=== PATIENT | male | born 1980 | race Caucasian/White ===

== ENCOUNTER 2017-05-27 01:36 | Emergency (ER) | payer OTHER ==
[2017-05-27 01:50] VITALS: RESP 18
[2017-05-27] MEDS ORDERED: PROMETHAZINE 25 MG TAB PO STA (02:11)
[2017-05-27] MEDS ORDERED: SODIUM CHLORIDE 0.9% 1,000 ML IV STA ×2 (02:11)
[2017-05-27] MEDS ORDERED: ONDANSETRON 4 MG/2 ML VIAL IVP STA (02:11)
[2017-05-27] MEDS ORDERED: HYDROmorphone 1 MG/ML 1 ML SYRINGE IVP STA (02:11)
--- NOTE | 2017-05-27 02:33 | ED ---
Abdominal Pain HPI - General Chief Complaint: Abdominal Pain Stated Complaint: Abdominal Pain Time Seen by Provider: 05/27/17 01:53 Source: patient Mode of arrival: ambulatory Limitations: no limitations - History of Present Illness Initial Comments: This 37-year-old white male presents with a complaint of some flank pain which is been intermittent over the past week but much more severe over the past 6 hours tonight. It apparently is on the left side and radiates into the left lower quadrant. He had some nausea tonight but no vomiting, diarrhea, or constipation. There's been no fevers or chills. He apparently does have a history of kidney stones 4 times in the past and this is somewhat similar. He denies any urinary symptoms. No other complaints or modifying factors. - Related Data Previous Rx's Medication Instructions Recorded Ciprofloxacin HCl [Cipro] 500 mg PO Q12HR #14 tablet 05/27/17 Hydrocodone/Acetaminophen [[place] 1 - 2 each PO Q4HR PRN #20 tab 05/27/17 5-325] Ibuprofen [Motrin] 800 mg PO Q8H PRN #20 tab 05/27/17 Ondansetron [Zofran ODT] 8 mg PO Q8HR PRN #12 tab 05/27/17 Tamsulosin [Flomax] 0.4 mg PO DAILY #14 cap 05/27/17 Allergies Allergy/AdvReac Type Severity Reaction Status Date / Time shellfish derived [Shrimp] Allergy Itching Verified 05/27/17 01:49 Review of Systems ROS Statement: Those systems with pertinent positive or pertinent negative responses have been documented in the HPI. ROS Other: All systems not noted in ROS Statement are negative. Past Medical History Additional Past Medical History / Comment(s): kidney stones History of Any Multi-Drug Resistant Organisms: None Reported Past Surgical History: No Surgical Hx Reported Past Psychological History: No Psychological Hx Reported Smoking Status: Current every day smoker Past Alcohol Use History: Occasional Past Drug Use History: None Reported General Exam - General Exam Comments Initial Comments: GENERAL: The patient is well nourished and well hydrated. VITAL SIGNS: Heart rate, blood pressure, respiratory rate reviewed as recorded in nurse's notes. EYES: Pupils are round and reactive. Extraocular movements are intact. No conjunctival / lid redness or swelling. ENT: No external evidence of injury, swelling, or ecchymosis. Airway is patent. Throat is clear. NECK: Nontender. No swelling or evidence of injury. No subcutaneous emphysema. Trachea is midline. No thyroid mass. HEART: Regular rate and rhythm. Good peripheral pulses. LUNGS/CHEST: Breath sounds clear and equal bilaterally. No rales, rhonchi, or wheezes. No ecchymosis, subcutaneous emphysema, or tenderness. ABDOMEN: There is some tenderness present into the left flank region. No anterior abdominal tenderness noted. No palpable masses or organomegaly. No peritoneal signs. No abdominal wall swelling or ecchymosis. EXTREMITIES: No extremity tenderness. Normal muscle tone and function. No thoracolumbar tenderness. NEUROLOGIC: Sensation is grossly intact. Cranial nerve exam reveals face is symmetrical, tongue is midline, speech is clear. SKIN: No abrasions or ecchymosis is noted. No induration or masses noted. PSYCHIATRIC: Alert and oriented. Appropriate behavior and judgment. Limitations: no limitations Course Vital Signs 05/27/17 05/27/17 01:47 04:03 Temperature 97.1 F L 97.6 F Pulse Rate 94 72 Respiratory 18 18 Rate Blood Pressure 141/86 119/72 O2 Sat by Pulse 98 97 Oximetry Medical Decision Making - Medical Decision Making The patient was seen and examined. All diagnostics were reviewed. An IV was established and he received some Dilaudid, Zofran, and Toradol. He is feeling improved on recheck. The laboratory is reviewed and is essentially within normal limits. The urinalysis does show some hematuria but also some elevation of the white blood cells. The computed tomography scan shows a 5 mm proximal left ureteral stone with hydronephrosis. He is had kidney stones multiple times previously and states that he has passed them all on his own. It is felt as though he is stable for discharge. Return parameters are discussed and urology follow-up will be given. - Lab Data Result diagrams: 05/27/17 02:30 05/27/17 02:30 Lab Results 05/27/17 05/27/17 05/27/17 Range/Units 02:02 02:30 02:30 WBC 9.2 (3.8-10.6) k/uL RBC 5.01 (4.30-5.90) m/uL Hgb 15.5 (13.0-17.5) gm/dL Hct 44.6 (39.0-53.0) % MCV 88.9 (80.0-100.0) fL MCH 31.0 (25.0-35.0) pg MCHC 34.8 (31.0-37.0) g/dL RDW 13.1 (11.5-15.5) % Plt Count 209 (150-450) k/uL Neutrophils % 66 % Lymphocytes % 24 % Monocytes % 5 % Eosinophils % 4 % Basophils % 1 % Neutrophils # 6.1 (1.3-7.7) k/uL Lymphocytes # 2.2 (1.0-4.8) k/uL Monocytes # 0.4 (0-1.0) k/uL Eosinophils # 0.3 (0-0.7) k/uL Basophils # 0.0 (0-0.2) k/uL Sodium 142 (137-145) mmol/L Potassium 4.1 (3.5-5.1) mmol/L Chloride 105 (98-107) mmol/L Carbon Dioxide 24 (22-30) mmol/L Anion Gap 13 mmol/L BUN 16 (9-20) mg/dL Creatinine 0.80 (0.66-1.25) mg/dL Est GFR (MDRD) Af Amer >60 (>60 ml/min/1.73 sqM) Est GFR (MDRD) Non-Af >60 (>60 ml/min/1.73 sqM) Glucose 92 (74-99) mg/dL Calcium 9.6 (8.4-10.2) mg/dL Total Bilirubin 0.8 (0.2-1.3) mg/dL AST 21 (17-59) U/L ALT 32 (21-72) U/L Alkaline Phosphatase 59 (38-126) U/L Total Protein 7.2 (6.3-8.2) g/dL Albumin 4.7 (3.5-5.0) g/dL Amylase <30 L (30-110) U/L Lipase 41 (23-300) U/L Urine Color Light Red Urine Appearance Clear (Clear) Urine pH 6.0 (5.0-8.0) Ur Specific [place] 1.015 (1.001-1.035) Urine Protein 1+ H (Negative) Urine Glucose (UA) Negative (Negative) Urine Ketones Negative (Negative) Urine Blood Large H (Negative) Urine Nitrite Negative (Negative) Urine Bilirubin Negative (Negative) Urine Urobilinogen <2.0 (<2.0) mg/dL Ur Leukocyte Esterase Negative (Negative) Urine RBC >182 H (0-5) /hpf Urine WBC 50 H (0-5) /hpf Urine Mucus Rare H (None) /hpf Disposition Clinical Impression: Left flank pain, Abdominal pain, Ureterolithiasis, Hydronephrosis, Nausea Disposition: HOME SELF-CARE Condition: Good Instructions: Kidney Stones (ED) Prescriptions: Ciprofloxacin HCl [Cipro] 500 mg PO Q12HR #14 tablet Hydrocodone/Acetaminophen [[place] 5-325] 1 - 2 each PO Q4HR PRN #20 tab PRN Reason: Pain Ibuprofen [Motrin] 800 mg PO Q8H PRN #20 tab PRN Reason: Pain Ondansetron [Zofran ODT] 8 mg PO Q8HR PRN #12 tab PRN Reason: Nausea Tamsulosin [Flomax] 0.4 mg PO DAILY #14 cap Referrals: Dank Jordan MD [STAFF PHYSICIAN] - 05/29/17 NellPhysician [Primary Care Provider] - 05/29/17 Time of Disposition: 04:12
[2017-05-27 02:37] LABS: Appearance,Urine Clear (Clear); Bilirubin,Urine Negative (Negative); Glucose,Urine (UA) Negative (Negative); Ketones,Urine Negative (Negative); Leukocyte Esterase,Urine Negative (Negative); Mucus,Urine Rare /hpf; Nitrite,Urine Negative (Negative); Particle Count 3026; Protein,Urine 1+ (Negative); RBC,Urine >182 /hpf (0-5); Specific Gravity,Urine 1.015 (1.001-1.035); UA Billing (MACRO vs. MICRO) MICRO; Urobilinogen,Urine <2.0 mg/dL (<2.0); WBC,Urine 50 /hpf (0-5)
[2017-05-27 02:48] LABS: Basophils % (A) 1 %; CH 31.2; CHCM 35.2; Eosinophils # (A) 0.3 k/uL (0-0.7); Eosinophils % (A) 4 %; HCT 44.6 % (39.0-53.0); HDW 2.42; HGB 15.5 gm/dL (13.0-17.5); Luc # (Auto) 0.13; Luc % (Auto) 2; Lymphocytes # (A) 2.2 k/uL (1.0-4.8); Lymphocytes % (A) 24 %; MCHC 34.8 g/dL (31.0-37.0); MCV 88.9 fL (80.0-100.0); Mean Platelet Volume 7.8; Monocytes # (A) 0.4 k/uL (0-1.0); Monocytes % (A) 5 %; Neutrophils # (A) 6.1 k/uL (1.3-7.7); Neutrophils % (A) 66 %; RBC 5.01 m/uL (4.30-5.90); RDW 13.1 % (11.5-15.5); WBC 9.2 k/uL (3.8-10.6); WBC (Perox) 9.18
[2017-05-27 03:05] LABS: ALT 32 U/L (21-72); AST 21 U/L (17-59); Alkaline Phosphatase 59 U/L (38-126); Amylase <30 U/L (30-110); Anion Gap 13 mmol/L; Blood Urea Nitrogen 16 mg/dL (9-20); Calcium 9.6 mg/dL (8.4-10.2); Carbon Dioxide 24 mmol/L (22-30); Chloride 105 mmol/L (98-107); Glucose 92 mg/dL (74-99); Non-African American GFR(MDRD) >60 (>60 ml/min/1.73 sqM); Potassium 4.1 mmol/L (3.5-5.1); Sodium 142 mmol/L (137-145); Total Bilirubin 0.8 mg/dL (0.2-1.3); Total Protein 7.2 g/dL (6.3-8.2)
--- NOTE | 2017-05-27 03:25 | CT ---
EXAM: CT Abdomen and Pelvis Without Intravenous Contrast CLINICAL HISTORY: Right flank pain TECHNIQUE: Axial computed tomography images of the abdomen and pelvis without intravenous contrast. CTDI is 5.4 mGy and DLP is 257 mGy-cm. This CT exam was performed using one or more of the following dose reduction techniques: automated exposure control, adjustment of the mA and/or kV according to patient size, and/or use of iterative reconstruction technique. COMPARISON: No relevant prior studies available. FINDINGS: Lower thorax: Dependent atelectasis. ABDOMEN: Liver: Unremarkable. Gallbladder and bile ducts: Unremarkable. Pancreas: Unremarkable. Spleen: Unremarkable. Adrenals: Unremarkable. Kidneys and ureters: 5 mm calculus in the proximal left ureter (3-60), which causes mild hydronephrosis and periureteral stranding. Presumed cysts are seen within both kidneys some of which demonstrate calcification. These are incompletely characterized without IV contrast. Stomach and bowel: Unremarkable. Appendix: The appendix is unremarkable. PELVIS: Bladder: Unremarkable. Reproductive: Unremarkable as visualized. ABDOMEN and PELVIS: Intraperitoneal space: Unremarkable. Bones/joints: No acute fracture. No dislocation. Soft tissues: Unremarkable. Vasculature: Unremarkable. Lymph nodes: Unremarkable. IMPRESSION: 5 mm calculus in the proximal left ureter (3-60), which causes mild hydronephrosis and periureteral stranding.
[2017-05-27 04:04] VITALS: BP 119/72; PULSE 72; TEMP 97.6
[2017-05-27] MEDS ORDERED: CIPROFLOXACIN HCL 500 MG TAB PO STA (04:06)
== END 2017-05-27 04:30 | disposition home or self-care (01) ==
LOC: EC 01:36
DX: N13.2 Hydronephrosis with renal and ureteral calculous obstruction (principal); R11.0 Nausea; F17.200 Nicotine dependence, unspecified, uncomplicated; Z91.013 Allergy to seafood
CPT/HCPCS: 96374; 96375; 96361 ×2; 99284; 36415; 80053; 82150; 83690; 85025; 81001; 74176; J2405; J1170

== ENCOUNTER → 2023-02-21 | Outpatient (CLI) | payer OTHER ==
[2023-02-21 16:57] LABS: Partial Thromboplastin Time 26.5 sec (22.0-30.0); Prothrombin Time 10.4 sec (9.0-12.0)
[2023-02-22 02:06] LABS: African American GFR (CKD) 102.2 (60.0-200.0); Albumin 4.7 g/dL (3.8-4.9); Albumin/Globulin Ratio 2.1 (1.60-3.17); Anion Gap 9.2 mmol/L (10.00-18.00); BUN/Creat Ratio 18.75 Ratio (12.00-20.00); Blood Urea Nitrogen 19.5 mg/dL (9.0-27.0); Carbon Dioxide 28.3 mmol/L (20.0-27.5); Globulin 2.2 g/dL (1.6-3.3); Non-African American GFR(CKD) 88.1 (60.0-200.0); Potassium 4.8 mmol/L (3.5-5.5); Total Bilirubin 0.2 mg/dL (0.30-1.20); Total Protein 6.9 g/dL (6.2-8.2)
[2023-02-22 02:14] LABS: HCT 45.1 % (39.6-50.0); MCH 29.8 pg (27.0-32.0); MCHC 33.3 g/dL (32.0-37.0); MCV 89.7 fL (80.0-97.0); Mean Platelet Volume 10.5 fL (9.5-12.2); NRBC Per 100 WBC 0 /100 WBCS (0.0-0.0); Platelet Count 254 X 10*3/uL (140-440); RBC 5.03 X 10*6/uL (4.40-5.60); RDW 12.4 % (11.5-14.5); WBC 5.02 X 10*3/uL (4.50-10.00)
[2023-02-22 04:00] LABS: Appearance,Urine Clear (Clear); Bilirubin,Urine Negative (Negative); Blood,Urine Moderate (Negative); Color,Urine Yellow (Yellow); Ketones,Urine Negative (Negative); Nitrite,Urine Negative (Negative); PH, Urine 6.5 (5.0-8.0); Specific Gravity,Urine 1.017 (1.001-1.030); Urobilinogen,Urine 0.2 (0.2,1.0)
[2023-02-22 04:40] LABS: Bacteria,Urine None Seen /HPF (None Seen); Calcium Oxalate Crystals,Urine Present /LPF (None Seen)
== END | disposition home or self-care (01) ==
LOC: LABPAT 15:22
PROVIDERS: ATTEND Orthopaedic Surgery
DX: Z01.812 Encounter for preprocedural laboratory examination (principal); M16.12 Unilateral primary osteoarthritis, left hip
CPT/HCPCS: 80053; 81001; 85027; 85610; 85730; 87070

== ENCOUNTER 2023-03-01 13:51 | Inpatient (IN) | payer OTHER ==
[2023-02-23 10:52] VITALS: BMI 25.8
[~2023-03-01 13:51] MED LIST: ACETAMINOPHEN TAB 500 MG TAB PO PRN; DEXAMETHASONE SOD PHOSPHATE 10 MG/ML 1 ML VIAL IV PRN; DEXAMETHASONE SOD PHOSPHATE 4 MG/ML 1 ML VIAL IV ONE; DOCUSATE 100 MG CAP PO PRN; FAMOTIDINE 20 MG/2 ML VIAL IVP PRN; HYDROmorphone 0.5 MG/0.5 ML SYRINGE IVP PRN; KETOROLAC 15 MG/ML 1 ML VIAL IVP PRN; LIDOCAINE 1% (10MG/ML) FOR IV START INTRADERMA PRN; ONDANSETRON 4 MG/2 ML VIAL IVP PRN; ROPIVACAINE/EPI/CLONIDINE/KET 50 ML SYRINGE MISCELLANE PRN; TRANEXAMIC ACID IN NACL,ISO-OS 1,000 MG in SALINE 1 100ML.BAG IV PRN; TRANEXAMIC ACID IN NACL,ISO-OS 1,000 MG in SALINE 1 100ML.BAG IVPB PRN; oxyCODONE ER 10 MG TAB.ER.12H PO PRN
[2023-03-01] MEDS: LACTATED RINGERS 1,000 ML IV SCH ×3 (14:21→22:10)
[2023-03-01] MEDS ORDERED: MIDAZOLAM 2 MG/2 ML VIAL IVP ONE (14:36)
[2023-03-01] MEDS ORDERED: fentaNYL (PF) 50 MCG/ML 2 ML AMP IVP ONE (14:38)
[2023-03-01] MEDS ORDERED: HYDROmorphone (PF) 1 MG/ML ONE (15:19)
[2023-03-01] MEDS ORDERED: fentaNYL (PF) 50 MCG/ML 2 ML AMP ONE (15:19)
[2023-03-01] MEDS ORDERED: MIDAZOLAM 2 MG/2 ML VIAL ONE (15:19)
[2023-03-01] MEDS ORDERED: LIDOCAINE 2% INJ 20 MG/ML (2 ML VIAL) ONE (15:19)
[2023-03-01] MEDS ORDERED: ROCURONIUM 10 MG/ML (5 ML VIAL) IV ONE (15:19)
[2023-03-01] MEDS ORDERED: SUCCINYLCHOLINE CHLORIDE 200 MG/10 ML VIAL IV ONE (15:19)
[2023-03-01] MEDS ORDERED: PROPOFOL 10 MG/ML 20 ML VIAL IV ONE (15:19)
[2023-03-01] MEDS ORDERED: PHENYLEPHRINE-0.9% NACL SYG 1,000 MCG/10 ML SYRINGE ONE (15:19)
[2023-03-01] MEDS ORDERED: TRANEXAMIC ACID IN NACL,ISO-OS 1,000 MG/100 ML BAG ONE (15:19)
[2023-03-01] MEDS ORDERED: GLYCOPYRROLATE 0.2 MG/ML 2 ML VIAL ONE (15:19)
[2023-03-01] MEDS ORDERED: NEOSTIGMINE 1 MG/ML 10 ML VIAL ONE (15:19)
[2023-03-01] MEDS ORDERED: LACTATED RINGERS 1,000 ML IV ONE (16:27)
[2023-03-01] MEDS ORDERED: HYDROmorphone 0.5 MG/0.5 ML SYRINGE IVP PRN (17:46)
[2023-03-01] MEDS ORDERED: NALOXONE 0.4 MG/ML 1 ML VIAL IV PRN (17:46)
[2023-03-01] MEDS ORDERED: HYDROcodone/APAP 5-325MG 1 EACH TAB PO PRN (17:46)
--- NOTE | 2023-03-01 17:46 | FL ---
Intraoperative/procedural fluoroscopic services were provided. Total fluoroscopy time is 46 seconds w ith a total of 6 submitted images to PACS. Please see the operative/procedural note for further jamaal ls. DAP: 0.3052
--- NOTE | 2023-03-01 17:56 | P.OP ---
Date of Procedure: 03/01/23 Preoperative Diagnosis: 1. Left hip avascular necrosis with collapse Postoperative Diagnosis: Same Procedure(s) Performed: Left direct anterior total hip arthroplasty Implants: 1. Lamar Trident II Acetabular Cup, Size #54 2. [place] Insignia Size #4 Femoral Stem, High Offset 3. Biolox delta femoral head, 36 mm, - -2.5 neck Anesthesia: BETTY, regional Surgeon: Curry Xiao [employer] #1: Tee Saucedo Estimated Blood Loss (ml): 200 IV fluids (ml): 1,300 Pathology: none sent Condition: stable Disposition: PACU Indications for Procedure: I had a long discussion with the patient in the office on the potential risks and complications of an elective total hip replacement through a direct anterior approach. Risks discussed include, but are certainly not limited to, risks from anesthesia, superficial infection requiring local wound care or antibiotics, deep kit-prosthetic joint infection and the treatment required to eradicate infection, intraoperative fracture, postoperative periprosthetic fracture, damage to local blood vessels or nerves particularly the lateral femoral cutaneous nerve, delayed wound healing requiring local wound care or possibly surgical debridement, hip dislocation, leg length discrepancy, soft tissue irritation around the total hip implant such as iliopsoas tendinitis or trochanteric bursitis, wear and osteolysis from the implants, squeaking or audible noises, groin pain, thigh pain, heterotopic ossification, stiffness, aseptic loosening of the implants, dissatisfaction with surgical outcome, need for revision surgery, DVT, PE, swelling of the operative extremity, acute coronary event, stroke, failure to thrive, and possibly loss of life or limb. The patient understands that while these are the most common complications after an elective hip replacement there are certainly other less common complications possible. They were given ample time to ask questions regarding the potential complications of a hip replacement. Following our discussion the patient provided their verbal and written consent to go forward with an elective total hip replacement. Operative Findings: Avascular necrosis with collapse of the femoral head. There were multiple loose cartilaginous bodies within the joint. Description of Procedure: The patient was identified in the preoperative holding area and the correct hip was marked with my initials. I reviewed the procedure and consent with the patient. All of their questions were answered. The patient was then brought back into the operating room by anesthesia. While on the gurney anesthesia was administered by the anesthesia team. Preoperative antibiotics and tranexamic acid were also given. After the patient was under anesthesia I examined their a nkles to determine their preoperative leg length discrepancy. The skin over the anterior aspect of the hip was shaved to remove hair over the site of planned incision. Both feet and ankles were padded with webril and boots for the [place] were applied. The patient was then carefully transferred onto the [place] table. A perineal post was immediately placed. The arms were placed on arm holders and were well-padded. Both boots were secured to the spars on the [place] table. The patient was positioned so that the pelvis was centered over the post. Nonsterile drapes were applied. A timeout was performed identifying the correct patient, operative extremity, and procedure. At this point fluoroscopy was brought in to take preoperative images of the pelvis and operative hip. Using the standing AP pelvis from the office as a template, a comparable image was obtained with fluoroscopy. A metallic bar was used to create a bi-ischial line for use as a reference to leg length adjustments during the procedure. Global offset was also measured on both the operative and nonoperative leg. Fluoroscopy was then brought out and a pre-scrub using a chlorhexidine scrub brush was performed. The operative limb was then prepped and draped in the standard sterile fashion. An anterior longitudinal incision was made lateral and distal to the ASIS. The skin and subcutaneous tissues were incised sharply. The underlying tensor fascia was identified and incised in its midportion. The fascia was dissected free from the underlying muscle and the muscle belly was retracted. A blunt tipped cobra retractor was placed over the superior neck under the muscle fibers of the gluteus minimus. The deep enveloping fascia of the tensor was incised. The anterior leash of vessels were then identified and cauterized. The fascia between the rectus and the capsule was then incised and the pre-capsular fat was excised. A second Cobra was placed inferior to the neck. The interval between the rectus and iliocapsularis and the hip capsule was developed and a retractor was placed carefully over the anterior rim of the acetabulum. A T-shaped anterior capsulotomy was performed. The superior capsular leaflet was left in place in the inferior capsular flap was excised. The Cobra retractors were placed intracapsularly. We then made a femoral neck osteotomy according to preoperative and intraoperative templating and confirmed the level of the osteotomy using fluoroscopic imaging. The femoral head was removed, passed off to the back table, and sized. On inspection there were findings consistent with avascular necrosis and collapse of the femoral head. There were multiple loose cartilaginous bodies within the joint. The superior capsular flap was excised. Retractors were placed circumferentially exposing the acetabulum. We then circumferentially debrided the acetabulum free of labrum and osteophytes. The pulvinar was removed to fully visualize the cotyloid fossa. We then sequentially reamed to achieve peripheral fit and excellent bleeding subchondral bone. The socket was thoroughly irrigated. The acetabular component was impacted into the appropriate position using fluoroscopy to guide version, inclination, and depth of insertion taking care to have a comparable image of the AP pelvis to the standing image taken in the office. An excellent press-fit was achieved and final position was confirmed using fluoroscopy. The press fit was augmented with bony cancellus dome screws. The liner was then impacted into the socket. Attention was then turned to the femur. The remnant dorsal lateral capsule was excised. The short external rotators were visible and protected. A bone hook was used to confirm appropriate translation of the trochanter away from the acetabulum. The leg was then extended and adducted and the bone hook was used to elevate the femur for broaching. A box osteotome and blunt tipped canal sound was then utilized to gain access to the femoral canal. We then sequentially broached the femur in appropriate anteversion until excellent torsional stability was achieved. The neck cut was brought flush to the trial broach with a calcar planar. A trial neck and head were then placed onto the broach and the hip was atraumatically reduced under direct visualization. External rotation to 90 was performed to assess stability. Fluoroscopy was brought in. An AP and lateral fluoroscopic image of the proximal femur was obtained to assess position and fill of the trial broach. An AP of the pelvis was then obtained and matched to the preoperative image taken. A bi-ischial bar was then placed and measurements were taken to assess changes in length and offset. The hip was then carefully dislocated, the proximal femur was exposed, and the trial implants were removed. The wound and proximal femur was thoroughly irrigated using sterile saline and pulsatile lavage. The final femoral implant was dispensed and gently tapped into place generating an excellent press-fit. The trunnion was cleansed and the final head was tapped into place to engage the [place] taper. The acetabulum was irrigated and visualized to be free of debris. The hip was carefully reduced. Stability was checked clinically with external rotation to 90 and there was no evidence of instability. Final fluoroscopic images were taken. The wound was then thoroughly irrigated and soaked with a dilute Betadine rinse for 3 minutes. 3 L of sterile saline was irrigated through the wound using pulsatile lavage. Local anesthetic cocktail was injected into the soft tissues around the surgical field. The wound was then closed in layers. A sterile dressing was placed over the surgical incision. The drapes were taken down and the patient was carefully transferred off of the [place] table. Following removal of the boots the leg lengths felt acceptable. The patient was then taken to recovery room having tolerated the procedure well. Tee Saucedo PA-C was required as a skilled business services assistant for patient positioning, surgical exposure, retraction, placement of implants, and closure of the surgical wound. PLAN: The patient can weight-bear as tolerated on the operative extremity. DVT prophylaxis with aspirin 81 mg twice a day based on preoperative risk stratification. Physical therapy for gait training.
--- NOTE | 2023-03-01 20:51 | P.ANPRN ---
Procedure Note - Anesthesia - Nerve Block Performed Left Nicola Time Out Performed: Yes (14:38) Date of Procedure: 03/01/23 Procedure Start Time: :38 Procedure Stop Time: :44 Location of Patient: PreOp Indication: Acute Post-Operative Pain, Requested by Surgeon (Dr Xiao) Sedation Type: Sedate with meaningful contact maintained Preparation: Sterile Prep Position: Supine Catheter: None Needle Types: Pajunk Needle Gauge: 21 Ultrasound used to visualize needle placement: Yes Ultrasound used to observe medication spread: Yes Injectate: 0.5% Ropivacaine (see comment for volume) (20cc + 5cc PF Normal saline) Blood Aspirated: No Pain Paresthesia on Injection Noted: No Resistance on Injection: Normal Image Stored and Saved: Yes Events: Uneventful and Well Tolerated
[2023-03-01] MEDS: ASPIRIN 81 MG PO SCH (22:11)
[2023-03-01] MEDS: SENNOSIDES-DOCUSATE SODIUM 1 EACH TAB PO SCH (22:11)
[2023-03-01] MEDS: HYDROcodone/APAP 5-325MG 1 EACH TAB PO PRN (22:13)
[2023-03-02] MEDS: HYDROmorphone 0.5 MG/0.5 ML SYRINGE IVP PRN ×3 (02:53→10:25)
[2023-03-02] MEDS: LACTATED RINGERS 1,000 ML IV SCH ×3 (05:25→20:03)
[2023-03-02] MEDS: ASPIRIN 81 MG PO SCH ×2 (08:12→21:52)
[2023-03-02] MEDS: HYDROcodone/APAP 5-325MG 1 EACH TAB PO PRN (09:48)
[2023-03-02] MEDS: hydrOXYzine pamoate 25 MG CAP PO PRN (09:48)
[2023-03-02 10:59] LABS: Basophils # (A) 0.01 X 10*3/uL (0.00-0.10); Basophils % (A) 0.1 %; Eosinophils # (A) 0 X 10*3/uL (0.04-0.35); Eosinophils % (A) 0 %; HCT 35.8 % (39.6-50.0); HGB 12.1 g/dL (13.0-17.0); Immature Grans, Automated 0.4 %; Lymphocytes # (A) 0.99 X 10*3/uL (0.90-5.00); Lymphocytes % (A) 6.6 %; MCH 29.8 pg (27.0-32.0); MCHC 33.8 g/dL (32.0-37.0); MCV 88.2 fL (80.0-97.0); Mean Platelet Volume 10.2 fL (9.5-12.2); Monocytes # (A) 0.76 X 10*3/uL (0.20-1.00); Monocytes % (A) 5.1 %; NRBC Per 100 WBC 0 /100 WBCS (0.0-0.0); Neutrophils # (A) 13.15 X 10*3/uL (1.80-7.70); Neutrophils % (A) 87.8 %; Platelet Count 239 X 10*3/uL (140-440); RBC 4.06 X 10*6/uL (4.40-5.60); RDW 12.2 % (11.5-14.5); WBC 14.97 X 10*3/uL (4.50-10.00)
[2023-03-02] MEDS ORDERED: HYDROcodone/APAP 5-325MG 1 EACH TAB PO PRN (12:31)
[2023-03-02] MEDS ORDERED: HYDROcodone/APAP 10-325MG 1 EACH TAB PO PRN (12:33)
--- NOTE | 2023-03-02 12:44 | P.DS ---
Providers Expected date of discharge: 03/02/23 Attending physician: Curry Xiao Consults: 03/01/23 17:46 Consult Physician Routine Consulting Provider: Benson Westfall Consult Reason/Comments: medical management Do you want consulting provider notified?: Yes Primary care physician: Stated None Hospital Course: This is a 42-year-old male with avascular necrosis of the left hip. After discussion and consideration patient elects to proceed with left direct anterior total hip arthroplasty. The patient is seen preoperatively by Dr. Dalal and cleared for surgery. Patient is admitted to [facility] on 03/21/23 for left direct anterior total hip arthroplasty. The procedures performed without complication or sequelae. The patient is doing well postoperatively. Labs and vital signs are stable on day of discharge. Patient is examined bedside this morning with Dr. Xiao. Pain in the left hip is well-controlled at this time. He is ambulating with walker with minimal assistance. He is comfortable returning today. No complaints or concerns at this time. On examination, the patient is sitting up in bed in no apparent distress. He is alert and oriented 3. On inspection of the left hip, there is a clean, dry, intact. Today surgical dressing in place. No bleeding or drainage to the dressing. Motor and sensory function is intact of the left lower extremity. Femoral nerve function intact. Left lower extremity is warm and well-perfused. Calf is soft nontender to palpation. Patient is discharged to home in good condition today, pending medical c learance. Please see med rec for accurate list of discharge medications. Patient should follow-up in the office at [facility] in 2 weeks. Plan - Discharge Summary Discharge Rx Participant: Yes New Discharge Prescriptions: New Aspirin 81 mg PO BID 30 Days #60 tab Docusate [Colace] 100 mg PO BID #60 capsule Omeprazole 40 mg PO DAILY 30 Days #30 cap Diclofenac Sodium [Voltaren] 75 mg PO BID 30 Days #60 tab HYDROcodone/APAP 5-325MG [[place] 5-325] 1 - 2 tab PO Q6HR PRN 7 Days #32 tab PRN Reason: Pain No Action Acetaminophen [Tylenol Extra Strength] 500 - 1,000 mg PO DIRECTED PRN PRN Reason: Pain Discharge Medication List Acetaminophen [Tylenol Extra Strength] 500 - 1,000 mg PO DIRECTED PRN 04/27/23 [History] Aspirin 81 mg PO BID 30 Days #60 tab 03/02/23 [Rx] Diclofenac Sodium [Voltaren] 75 mg PO BID 30 Days #60 tab 03/02/23 [Rx] Docusate [Colace] 100 mg PO BID #60 capsule 03/02/23 [Rx] HYDROcodone/APAP 5-325MG [[place] 5-325] 1 - 2 tab PO Q6HR PRN 7 Days #32 tab 03/02/23 [Rx] Omeprazole 40 mg PO DAILY 30 Days #30 cap 03/02/23 [Rx]
[2023-03-02] MEDS: HYDROmorphone 1 MG/ML 1 ML SYRINGE IVP PRN ×2 (14:55→23:10)
--- NOTE | 2023-03-02 15:55 | P.CONS ---
History of Present Illness - Reason for Consult Consult date: 03/02/23 Medical managemetn Requesting physician: Tee Saucedo - History of Present Illness This is a pleasant 42-year-old male with medical history significant for hypertension, osteoarthritis, daily smoker and daily alcohol use. Patient presents to the hospital for left direct anterior total hip arthroplasty secondary to left hip avascular necrosis with collapse. Patient is postoperative day #1 and evaluated on the medical floor. Patient on evaluation is complaining of significant pain and swelling of the left hip and reports pain 10/10 and states he had difficulty working with physical therapy. He is asking to talk with orthopedics. He is denying any shortness of breath. Denying any numbness or tingling in the leg. He has +2 pulses bilaterally. Vital signs are stable on room air at 95% oxygen saturation and BP 124/84. REVIEW OF SYSTEMS: CONSTITUTIONAL: No fever, no malaise, no fatigue. HEENT: No recent visual problems or hearing problems. Denied any sore throat. CARDIOVASCULAR: No chest pain, orthopnea, PND, no palpitations, no syncope. PULMONARY: No shortness of breath, no cough, no hemoptysis. GASTROINTESTINAL: No diarrhea, no nausea, no vomiting, no abdominal pain. NEUROLOGICAL: No headaches, no weakness, no numbness. HEMATOLOGICAL: Denies any bleeding or petechiae. GENITOURINARY: Denies any burning micturition, frequency, or urgency. MUSCULOSKELETAL/RHEUMATOLOGICAL: Denies any joint pain, swelling, or any muscle pain. Reports left thigh pain. ENDOCRINE: Denies any polyuria or polydipsia. The rest of the 14-point review of systems is negative. PHYSICAL EXAMINATION: GENERAL: The patient is alert and oriented x3, not in any acute distress. Well developed, well nourished. HEENT: Pupils are round and equally reacting to light. EOMI. No scleral icterus. No conjunctival pallor. Normocephalic, atraumatic. No pharyngeal erythema. No thyromegaly. CARDIOVASCULAR: S1 and S2 present. No murmurs, rubs, or gallops. PULMONARY: Chest is clear to auscultation, no wheezing or crackles. ABDOMEN: Soft, nontender, nondistended, normoactive bowel sounds. No palpable organomegaly. MUSCULOSKELETAL: No joint swelling or deformity. EXTREMITIES: No cyanosis, clubbing, or pedal edema. Post surgical left hip with anterior incision dressing intact and there is some localized swelling. NEUROLOGICAL: Gross neurological examination did not reveal any focal deficits. SKIN: No rashes. Assessment and Plan Left hip avascular necrosis status post total left arthroplasty patient is having increased pain today at surgical site with localized swelling Mild leukocytosis postoperatively expected to improve History of hypertension currently normotensive and not on any blood pressure medication at home History of alcohol use History of nicotine use History of migraine GI prophylaxis DVT prophylaxis Full Code Plan Chart reviewed patient takes no scheduled home medications, uses tylenol as needed for pain He is on pain medication and bowel regimen by primary Encouraged to increase activity level and use incentive spirometer PT and OT are following The impression and plan of care has been dictated by Audrey Davidson Nurse Practitioner as directed. Dr. Cleo MD I have performed a history and physical examination and medical decision making of this patient, discussed the same with the dictator, and agree with the dictators assessment and plan as written, documented as a scribe. Based on total visit time, I have performed more than 50% of this visit. Past Medical History Past Medical History: Hypertension, Osteoarthritis (OA) Additional Past Medical History / Comment(s): "BP high last couple of times it was checked, no medications needed." Hx kidney stones X4. Hx Migraine once. History of Any Multi-Drug Resistant Organisms: None Reported Past Surgical History: No Surgical Hx Reported Additional Past Surgical History / Comment(s): All teeth removed. Past Anesthesia/Blood Transfusion Reactions: No Reported Reaction Additional Past Anesthesia/Blood Transfusion Reaction / Comm: States has never had general anesthesia. Past Psychological History: No Psychological Hx Reported Smoking Status: Former smoker Past Alcohol Use History: Daily Additional Past Alcohol Use History / Comment(s): Quit smoking daily 2 yrs ago, then smoked smoked on and off, then quit for good 6 months ago. 1-2 alcoholic drinks daily. Past Drug Use History: None Reported - Past Family History Mother Family Medical History: No Reported History Medications and Allergies Home Medications Medication Instructions Recorded Confirmed Type Acetaminophen [Tylenol Extra 500 - 1,000 mg PO DIRECTED PRN 02/23/23 03/01/23 History Strength] Aspirin 81 mg PO BID 30 Days #60 tab 03/02/23 Rx Diclofenac Sodium [Voltaren] 75 mg PO BID 30 Days #60 tab 03/02/23 Rx Docusate [Colace] 100 mg PO BID #60 capsule 03/02/23 Rx HYDROcodone/APAP 5-325MG [[place] 1 - 2 tab PO Q6HR PRN 7 Days #32 03/02/23 Rx 5-325] tab Omeprazole 40 mg PO DAILY 30 Days #30 cap 03/02/23 Rx Allergies Allergy/AdvReac Type Severity Reaction Status Date / Time shellfish derived [Shrimp] Allergy Itching Verified 03/01/23 14:02 Physical Exam Vitals: Vital Signs Temp Pulse Resp BP Pulse Ox 03/02/23 08:00 97.9 F 84 18 126/73 96 03/02/23 01:41 97.4 F L 78 18 124/72 93 L 03/01/23 21:30 106 H 145/94 03/01/23 21:15 94 125/86 94 L 03/01/23 21:00 99 127/89 96 03/01/23 20:45 93 127/89 95 03/01/23 20:30 92 128/86 95 03/01/23 20:15 94 124/84 94 L 03/01/23 20:00 96 117/83 94 L 03/01/23 19:45 99 125/88 92 L 03/01/23 19:30 97 120/81 94 L 03/01/23 18:39 85 14 131/81 95 03/01/23 18:24 86 14 129/82 97 03/01/23 18:09 80 14 125/80 99 03/01/23 17:54 97.0 F L 72 10 L 116/69 97 03/01/23 14:45 81 16 139/97 97 03/01/23 14:09 97.7 F 88 16 141/96 97 Intake and Output 03/01/23 03/02/23 03/02/23 22:59 06:59 14:59 Intake Total 1350 Output Total 200 Balance 1150 Intake: IV 1350 Output: Estimated Blood Loss 200 Other: Weight 80.7 kg Results CBC & Chem 7: 03/02/23 07:09 Assessment and Plan Time with Patient: Less than 30
[2023-03-02] MEDS: oxyCODONE-APAP 5-325MG 1 EACH TAB PO PRN ×2 (18:25→23:45)
--- NOTE | 2023-03-02 19:03 | P.PN ---
Progress Note - Text Progress Note Date: 03/02/23 The patient was seen tonight with complaints of pain in his left thigh after having had a direct anterior total hip replacement yesterday. The patient reports he was doing well until he was doing leg extensions with therapy this morning when there was an increase in pain in his hip. He has had pain and swelling since that time. Other than pain in the left thigh is without complaints. On exam the patient is resting in bed. He is alert and appears only in mild distress. He is able to answer questions without difficulty. On inspection the left thigh there is a clean-appearing dressing with no drainage or bleeding. There is mild ecchymosis around the dressing. His thigh is swollen and tender but compressible. Femoral nerve function is intact. Distally motor and sensory function are intact in his ankle and toes. There is a palpable dorsalis pedis and posterior tibial pulse. My clinical suspicion is that the patient has a hematoma which should resolve. We will check an x-ray of his hip and an ultrasound to rule out a DVT. I recommended icing his left thigh and continued pain control through the evening. Hopefully he can begin gentle therapy for gait training in the morning. If his condition or swelling worsens we briefly discussed getting a computed tomography scan and possibly performing a decompression of the hematoma and the operating room.
--- NOTE | 2023-03-02 19:36 | XR ---
EXAMINATION TYPE: XR Hip Complete LT DATE OF EXAM: 03/02/2023 7:12 PM INDICATION: Patient age:Male; 42 years old; Reason for study: post op; COMPARISON: None. TECHNIQUE: The left hip was examined in the frontal and lateral projections FINDINGS: Post arthroplasty changes, hardware is intact, alignment is appropriate. No evidence of fra cture. Postoperative changes of the soft tissues with subcutaneous gas. No evidence of any acute osse ous pathology or joint dislocation. IMPRESSION: Hip arthroplasty with hardware intact and in appropriate alignment. No acute fracture.
--- NOTE | 2023-03-02 19:50 | US ---
EXAMINATION TYPE: US venous doppler duplex LE LT DATE OF EXAM: 03/02/2023 7:26 PM COMPARISON: NONE CLINICAL INDICATION: Male, 42 years old with history of post op swelling; Left hip surgery yesterday. No hx of DVT. Pt isn't sure if he is on blood thinners SIDE PERFORMED: Left TECHNIQUE: The lower extremity deep venous system is examined utilizing real time linear array sonog flako with graded compression, doppler sonography and color-flow sonography. VESSELS IMAGED: Common Femoral Vein Deep Femoral Vein Greater Saphenous Vein * Femoral Vein Popliteal Vein Small Saphenous Vein * Proximal Calf Veins (* superficial vessels) Left Leg: There is echoes seen in the prox pop vein with no compression or blood flow. The CFV and p roni fem vein were limited due to pt not being able to tolerate compression. IMPRESSION: Positive deep vein thrombosis of the left lower extremity involving the popliteal vein p roximally.
[2023-03-02] MEDS ORDERED: HEPARIN SODIUM 1,000 UN/ML (10ML VL) IV ONE (21:46)
[2023-03-02] MEDS ORDERED: HEPARIN SODIUM 1,000 UN/ML (10ML VL) IV PRN (21:46)
[2023-03-02] MEDS: SENNOSIDES-DOCUSATE SODIUM 1 EACH TAB PO SCH (21:52)
--- NOTE | 2023-03-02 22:06 | P.PN ---
Progress Note - Text Progress Note Date: 03/02/23 Patient was seen again tonight at bedside to discuss ultrasound results which showed a DVT. IM was contacted and they recommended a heparin drip which I am ok starting. We will place a consult to vascular surgery. Patient will need detention anti-coagulation and I will defer choice of medication and duration to IM and vascular surgery.
[2023-03-02] MEDS: HEPARIN SOD,PORK IN 0.45% NACL 25,000 UNIT in 0.45% NACL 1 250ML.BAG IV SCH (22:07)
[2023-03-02 22:21] LABS: HCT 31.3 % (39.0-53.0); HGB 10.2 gm/dL (13.0-17.5); MCH 29.8 pg (25.0-35.0); MCHC 32.6 g/dL (31.0-37.0); MCV 91.3 fL (80.0-100.0); Platelet Count 226 k/uL (150-450); RBC 3.43 m/uL (4.30-5.90); RDW 12.7 % (11.5-15.5); WBC 9.4 k/uL (3.8-10.6)
[2023-03-03] MEDS: LACTATED RINGERS 1,000 ML IV SCH ×5 (00:30→20:10)
[2023-03-03] MEDS: HYDROmorphone 1 MG/ML 1 ML SYRINGE IVP PRN ×7 (04:25→23:13)
[2023-03-03] MEDS: oxyCODONE-APAP 5-325MG 1 EACH TAB PO PRN ×4 (04:42→23:13)
[2023-03-03] MEDS: ASPIRIN 81 MG PO SCH ×2 (07:51→21:48)
[2023-03-03] MEDS: HEPARIN SOD,PORK IN 0.45% NACL 25,000 UNIT in 0.45% NACL 1 250ML.BAG IV SCH (07:52)
[2023-03-03] MEDS: RIVAROXABAN 15 MG TAB PO SCH ×2 (09:03→17:00)
--- NOTE | 2023-03-03 09:23 | P.GSCN ---
History of Present Illness Consult date: 03/03/23 Reason for Consult: DVT left surgical leg Requesting physician: Curry Xiao History of present illness: This is a 42-year-old male with a history of left hip avascular necrosis with collapse and former smoker who underwent left direct anterior total hip arthroplasty on 03/01/2023. Yesterday patient was going to be discharged however complained of severe pain to left leg and swelling. He underwent venous duplex of the left lower extremity late yesterday evening was positive for DVT of the left lower extremity involving the popliteal vein proximally. He was started on a heparin drip yesterday evening. He is still complaining of pain in his left hip and thigh up to his knee. No pain in the calf or foot. Patient has bilateral SCDs on at this time. He currently denies any shortness of breath, chest pain, abdominal pain, nausea or vomiting. He denies any previous history of DVT, he states he is a former smoker. No history of clotting disorders that he is aware of. Vascular surgery was consulted for DVT with recommendation for anticoagulation. Review of Systems A 14 point review systems was completed all pertinent positives and negatives as stated in the HPI. Past Medical History Past Medical History: Hypertension, Osteoarthritis (OA) Additional Past Medical History / Comment(s): "BP high last couple of times it was checked, no medications needed." Hx kidney stones X4. Hx Migraine once. History of Any Multi-Drug Resistant Organisms: None Reported Past Surgical History: No Surgical Hx Reported Additional Past Surgical History / Comment(s): All teeth removed. Past Anesthesia/Blood Transfusion Reactions: No Reported Reaction Additional Past Anesthesia/Blood Transfusion Reaction / Comm: States has never had general anesthesia. Past Psychological History: No Psychological Hx Reported Smoking Status: Former smoker Past Alcohol Use History: Daily Additional Past Alcohol Use History / Comment(s): Quit smoking daily 2 yrs ago, then smoked smoked on and off, then quit for good 6 months ago. 1-2 alcoholic drinks daily. Past Drug Use History: None Reported - Past Family History Mother Family Medical History: No Reported History Medications and Allergies Home Medications Medication Instructions Recorded Confirmed Type Acetaminophen [Tylenol Extra 500 - 1,000 mg PO DIRECTED PRN 02/23/23 03/01/23 History Strength] Aspirin 81 mg PO BID 30 Days #60 tab 03/02/23 Rx Diclofenac Sodium [Voltaren] 75 mg PO BID 30 Days #60 tab 03/02/23 Rx Docusate [Colace] 100 mg PO BID #60 capsule 03/02/23 Rx HYDROcodone/APAP 5-325MG [[place] 1 - 2 tab PO Q6HR PRN 7 Days #32 03/02/23 Rx 5-325] tab Omeprazole 40 mg PO DAILY 30 Days #30 cap 03/02/23 Rx Rivaroxaban [Xarelto Starter Pack] 0 mg PO DIRECTED 30 Days #1 03/03/23 Rx packet Allergies Allergy/AdvReac Type Severity Reaction Status Date / Time shellfish derived [Shrimp] Allergy Itching Verified 03/01/23 14:02 Surgical - Exam Vital Signs Temp Pulse Resp BP Pulse Ox 97.7 F 88 16 141/96 97 03/01/23 14:09 03/01/23 14:09 03/01/23 14:09 03/01/23 14:09 03/01/23 14:09 General appearance: The patient is alert, oriented, appears in no acute distress. HET: Head is normocephalic and atraumatic. Pupils are equal and reactive. Neck: Supple. Heart: Regular. Lungs: Equal expansion, normal respiratory effort. Abdomen: Soft, nontender, nondistended. Extremities: Normal skin color and turgor. Swelling in left thigh, dressings in place. Tenderness to palpation. Left calf without tenderness to palpation, no swelling to the left lower leg or foot. Palpable PT and DP pulses. Neurological: No focal deficits. Alert and oriented 3. Results - Labs 03/02/23 21:37 Abnormal Lab Results - Last 24 Hours (Table) 03/02/23 03/02/23 03/03/23 Range/Units 07:09 21:37 04: WBC 14.97 H (4.50-10.00) X 10*3/uL RBC 4.06 L 3.43 L (4.40-5.60) X 10*6/uL Hgb 12.1 L 10.2 L (13.0-17.0) g/dL Hct 35.8 L 31.3 L (39.6-50.0) % Immature Gran # 0.06 H (0.00-0.04) X 10*3/uL Neutrophils # 13.15 H (1.80-7.70) X 10*3/uL Eosinophils # 0 L (0.04-0.35) X 10*3/uL APTT 172.1 H* (22.0-30.0) sec - Imaging Comments: Left venous duplex positive deep vein thrombosis of the left lower extremity involving the popliteal vein proximally. Assessment and Plan Assessment: 1. DVT left lower extremity post left direct anterior total hip arthroplasty 2. Postop day #2 left direct anterior total hip arthroplasty 3. Left hip avascular necrosis with collapse 4. Former smoker Plan: 1. Will start patient on Xarelto starter pack, 15 mg twice a day 21 days then 20 mg daily. Patient will need to be on anticoagulation for 3-6 months for provoked DVT. 2. Discontinue heparin 3. FREYA hose bilateral lower extremities 4. Activity as tolerated per recommendations from orthopedics 5. No indication for any vascular surgical intervention 6. Patient is clear from vascular surgery for discharge with follow-up in 1 week Thank you for this consultation, we will sign off at this time. The impression and plan of care has been dictated as directed. I performed a history and examination of this patient, discussed the same with the dictator. I agree with the dictator's note ,documented as a scribe. Any additional findings or plans will be noted.
--- NOTE | 2023-03-03 13:17 | P.PN ---
Subjective Progress Note Date: 03/03/23 This is a pleasant 42-year-old male with medical history significant for hypertension, osteoarthritis, daily smoker and daily alcohol use. Patient presents to the hospital for left direct anterior total hip arthroplasty secondary to left hip avascular necrosis with collapse. Patient is postoperative day #1 and evaluated on the medical floor. Patient on evaluation is complaining of significant pain and swelling of the left hip and reports pain 10/10 and states he had difficulty working with physical therapy. He is asking to talk with orthopedics. He is denying any shortness of breath. Denying any numbness or tingling in the leg. He has +2 pulses bilaterally. Vital signs are stable on room air at 95% oxygen saturation and BP 124/84. 03/03/2023 Patient is evaluated today ambulating in the room with walker. He has been up to the bathroom, reports passing gas. He continues to report significant pain to the left leg mostly the outer aspect of the left thigh. States there is some numbness/tingling. He had a venous doppler done yesterday which reveals a positive DVT of the left lower extremity involving the popliteal vein proximally. He was started on heparin gtt which was cleared by orthopedic surgery. Patient was seen in consultation by vascular services today and there is no surgical intervention required. Patient has been transitioned to xarelto. He has +2 pedal pulse bilaterally. The swelling of the left thigh at the surgical site appears improving from yesterday. Patient is tolerating activity better today. His white count has normalized to 9.4. He reports using his incentive spirometer. He is afebrile and on room air. Review of Systems Constitutional: Denied any fatigue denied any fever. Cardio vascular: denied any chest pain, palpitations Gastrointestinal: denied any nausea, vomiting, diarrhea Pulmonary: Denied any shortness of breath cough Neurologic: denied any new focal deficits All inpatient medications were reviewed and appropriate changes in these medications as dictated in the interval history and assessment and plan. PHYSICAL EXAMINATION: GENERAL: The patient is alert and oriented x3, not in any acute distress. Well developed, well nourished. HEENT: Pupils are round and equally reacting to light. EOMI. No scleral icterus. No conjunctival pallor. Normocephalic, atraumatic. No pharyngeal erythema. No thyromegaly. CARDIOVASCULAR: S1 and S2 present. No murmurs, rubs, or gallops. PULMONARY: Chest is clear to auscultation, no wheezing or crackles. ABDOMEN: Soft, nontender, nondistended, normoactive bowel sounds. No palpable organomegaly. MUSCULOSKELETAL: No joint swelling or deformity. EXTREMITIES: No cyanosis, clubbing, or pedal edema. Post surgical left hip with anterior incision dressing intact and there is some swelling to the left thigh which appears improving from yesterday. +2 pedal pulses. NEUROLOGICAL: Gross neurological examination did not reveal any focal deficits. SKIN: No rashes. Assessment and Plan Left hip avascular necrosis status post total left arthroplasty Acute DVT left popliteal Mild leukocytosis resolved History of hypertension blood pressure is in the 140s systolic today expect this is due to pain History of alcohol use History of nicotine use History of migraine GI prophylaxis DVT prophylaxis anticoagulated with xarelto Full Code Plan Patient has been evaluated by vascular surgery and no acute surgical intervention required. Patient has been started on xarelto for the acute DVT. Patient is tolerating activity better today he is evaluated up ambulating with [place] angulo. He is on pain medication and bowel regimen by primary Encouraged to increase activity level and use incentive spirometer PT and OT are following The impression and plan of care has been dictated by Audrey Davidson, Nurse Practitioner as directed. Dr. Cleo MD I have performed a history and physical examination and medical decision making of this patient, discussed the same with the dictator, and agree with the dictators assessment and plan as written, documented as a scribe. Based on total visit time, I have performed more than 50% of this visit. Objective - Vital Signs Vital signs: Vital Signs Temp 98.1 F 03/03/23 07:20 Pulse 97 03/03/23 07:20 Resp 18 03/03/23 07:20 BP 146/83 03/03/23 07:20 Pulse Ox 94 L 03/03/23 07:20 FiO2 Intake & Output 03/02/23 03/03/23 03/03/23 18:59 06:59 18:59 Intake Total 1201.682 22.596 Output Total 900 800 Balance 301.682 -777.404 Intake: Intake, IV Titration 1201.682 22.596 Amount Heparin Sod,Pork in 0.45% 101.682 22.596 NaCl 25,000 unit In 0.45 % NaCl 1 250ml.bag @ 18 UNITS/KG/HR 14.526 mls/hr IV .[id number] [facility] Rx#: [id number] Lactated Ringers 1,000 ml 1100 @ 100 mls/hr IV .Q10H [facility] Rx#:[id number] Output: Urine 900 800 - Labs CBC & Chem 7: 03/02/23 21:37 Labs: Abnormal Lab Results - Last 24 Hours (Table) 03/02/23 03/03/23 Range/Units 21:37 04:23 RBC 3.43 L (4.30-5.90) m/uL Hgb 10.2 L (13.0-17.5) gm/dL Hct 31.3 L (39.0-53.0) % APTT 172.1 H* (22.0-30.0) sec Assessment and Plan Time with Patient: Less than 30
--- NOTE | 2023-03-03 13:45 | P.PN ---
Subjective Progress Note Date: 03/03/23 This patient is a 42-year-old male who is status-post left anterior total hip arthroplasty on 03/01/23. Patient developed severe left hip and thigh pain yesterday along with swelling. Doppler ultrasound of the left lower extremity revealed an acute DVT of the LLE. Patient was started on heparin and a vascular surgery consult was placed. Heparin has been discontinued and patient has been started on PO Xarelto. Vascular surgery evaluated the patient and recommend no acute surgical intervention. Patient is examined bedside with Dr. Xiao this morning. He continues to experience pain in the left hip and thigh. He refused physical therapy today. No new complaints. Vital signs stable. Objective - Vital Signs Vital signs: Vital Signs Temp 98.1 F 03/03/23 07:20 Pulse 97 03/03/23 07:20 Resp 18 03/03/23 07:20 BP 146/83 03/03/23 07:20 Pulse Ox 94 L 03/03/23 07:20 FiO2 Intake & Output 03/02/23 03/03/23 03/03/23 18:59 06:59 18:59 Intake Total 1201.682 22.596 Output Total 900 800 Balance 301.682 -777.404 Intake: Intake, IV Titration 1201.682 22.596 Amount Heparin Sod,Pork in 0.45% 101.682 22.596 NaCl 25,000 unit In 0.45 % NaCl 1 250ml.bag @ 18 UNITS/KG/HR 14.526 mls/hr IV .[id number] [facility] Rx#: [id number] Lactated Ringers 1,000 ml 1100 @ 100 mls/hr IV .Q10H [facility] Rx#:[id number] Output: Urine 900 800 - Exam On examination, patient is sitting up in bed in no apparent distress. He is alert and orientated x3. On inspection of the left hip, there is moderate swelling of the thigh. The thigh is compressible. Motor and sensory function is intact of the left lower extremity. Femoral nerve function is intact. Left lower extremity warm and well-perfused. - Labs CBC & Chem 7: 03/02/23 21:37 Labs: Abnormal Lab Results - Last 24 Hours (Table) 03/02/23 03/03/23 Range/Units 21:37 04: RBC 3.43 L (4.30-5.90) m/uL Hgb 10.2 L (13.0-17.5) gm/dL Hct 31.3 L (39.0-53.0) % APTT 172.1 H* (22.0-30.0) sec Assessment and Plan Assessment: Status-post left direct anterior total hip arthroplasty on 03/01/23. Acute DVT left lower extremity. Plan: - Weight bear to tolerance on the operative extremity with a walker. - Recommend he continue physical therapy for mobilization. - Pain medication as needed. Oral medication increased to Percocet 5/325 mg. - Leave operative dressing in place. Patient may shower over dressing. - DVT management per internal medicine and vascular surgery. - We will continue to monitor patient very closely. Anticipate discharge home with home health services in next 1-2 days.
[2023-03-03] MEDS: SENNOSIDES-DOCUSATE SODIUM 1 EACH TAB PO SCH (21:48)
[2023-03-04] MEDS: LACTATED RINGERS 1,000 ML IV SCH ×3 (01:12→20:30)
[2023-03-04] MEDS: HYDROmorphone 1 MG/ML 1 ML SYRINGE IVP PRN ×2 (02:18→05:32)
[2023-03-04] MEDS: oxyCODONE-APAP 5-325MG 1 EACH TAB PO PRN ×3 (05:33→18:42)
[2023-03-04] MEDS: RIVAROXABAN 15 MG TAB PO SCH ×2 (06:18→18:42)
[2023-03-04] MEDS: ASPIRIN 81 MG PO SCH ×2 (08:50→21:00)
--- NOTE | 2023-03-04 09:18 | P.PN ---
Subjective Progress Note Date: 03/04/23 Principal diagnosis: Primary osteoarthritis left hip. Acute DVT left leg. Status post total left hip arthroplasty with direct anterior approach. This patient is a 42-year-old male who is status-post left anterior total hip arthroplasty on 03/01/23. Patient developed severe left hip and thigh pain yesterday along with swelling. Doppler ultrasound of the left lower extremity revealed an acute DVT of the LLE. Patient was started on heparin and a vascular surgery consult was placed. Heparin has been discontinued and patient has been started on PO Xarelto. Vascular surgery evaluated the patient and recommend no acute surgical intervention. Patient is examined bedside with Dr. Xiao this morning. He continues to experience pain in the left hip and thigh. He refused physical therapy today. No new complaints. Vital signs stable. 03/04/2023: The patient is postop day #2. He is complaining of nausea this morning. He is had no vomiting or diarrhea. He is having no abdominal pain. He denies shortness of breath. He is afebrile. Vital signs are stable. Objective - Vital Signs Vital signs: Vital Signs Temp 98.1 F 03/04/23 07:58 Pulse 113 H 03/04/23 07:58 Resp 18 03/04/23 07:58 BP 114/73 03/04/23 07:58 Pulse Ox 98 03/04/23 07:58 FiO2 Intake & Output 03/03/23 03/04/23 03/04/23 18:59 06:59 18:59 Intake Total 22.596 1100 Output Total 800 200 Balance -777.404 900 Intake: Intake, IV Titration 22.596 1100 Amount Heparin Sod,Pork in 0.45% 22.596 NaCl 25,000 unit In 0.45 % NaCl 1 250ml.bag @ 18 UNITS/KG/HR 14.526 mls/hr IV .[id number] [facility] Rx#: [id number] Lactated Ringers 1,000 ml 1100 @ 100 mls/hr IV .Q10H [facility] Rx#:[id number] Output: Urine 800 200 Other: # Voids 2 1 - Exam This is a 42-year-old male in no acute distress. He is alert and oriented. He does appear to not be fairly well. Exam of the left lower extremity reveals that his dressing is clean, dry and intact. There is moderate soft tissue swel ling to the thigh. Patient can actively bend his knee and hip. He has full foot and ankle motion without difficulty. There is no calf pain with palpation. Neurovascular status to the lower extremity is intact. - Labs CBC & Chem 7: 03/02/23 21:37 Assessment and Plan (1) Status post total replacement of left hip Current Visit: Yes Status: Acute Code(s): Z96.642 - PRESENCE OF LEFT ARTIFICIAL HIP JOINT SNOMED Code(s): 985531470045 (2) Primary localized osteoarthritis of left hip Current Visit: Yes Status: Acute Code(s): M16.12 - UNILATERAL PRIMARY OSTEOARTHRITIS, LEFT HIP SNOMED Code(s): 016950529178559 (3) DVT (deep venous thrombosis) Current Visit: Yes Status: Acute Code(s): I82.409 - ACUTE EMBOLISM AND THOMBOS UNSP DEEP VN UNSP LOWER EXTREMITY SNOMED Code(s): 586833729 Plan: The clinical findings are discussed with the patient. Nursing is working with him regarding his nausea area and we will continue care and he may be discharged to home when cleared medically.
[2023-03-04 09:58] LABS: Basophils # (A) 0.03 X 10*3/uL (0.00-0.10); Basophils % (A) 0.4 %; Eosinophils # (A) 0.08 X 10*3/uL (0.04-0.35); Eosinophils % (A) 1.1 %; HCT 23.6 % (39.6-50.0); HGB 7.5 g/dL (13.0-17.0); Immature Grans, Automated 0.3 %; Lymphocytes % (A) 39.2 %; MCH 29.3 pg (27.0-32.0); MCHC 31.8 g/dL (32.0-37.0); MCV 92.2 fL (80.0-97.0); Mean Platelet Volume 10.5 fL (9.5-12.2); Monocytes # (A) 0.72 X 10*3/uL (0.20-1.00); Monocytes % (A) 9.7 %; NRBC Per 100 WBC 0 /100 WBCS (0.0-0.0); Neutrophils # (A) 3.65 X 10*3/uL (1.80-7.70); Neutrophils % (A) 49.3 %; Platelet Count 177 X 10*3/uL (140-440); RBC 2.56 X 10*6/uL (4.40-5.60); RDW 12.4 % (11.5-14.5)
[2023-03-04] MEDS ORDERED: RX INFO: IV CONTRAST WAS GIVEN 1 EACH MISC MISCELLANE PRN (13:12)
[2023-03-04 13:36] LABS: Basophils % (A) 0 %; Eosinophils # (A) 0.1 k/uL (0-0.7); Eosinophils % (A) 2 %; HCT 23.4 % (39.0-53.0); Lymphocytes # (A) 1.9 k/uL (1.0-4.8); Lymphocytes % (A) 31 %; MCH 30.3 pg (25.0-35.0); MCHC 33.3 g/dL (31.0-37.0); MCV 91.1 fL (80.0-100.0); Mean Platelet Volume 7.3; Monocytes # (A) 0.4 k/uL (0-1.0); Monocytes % (A) 7 %; Neutrophils # (A) 3.6 k/uL (1.3-7.7); Neutrophils % (A) 59 %; Platelet Count 179 k/uL (150-450); RBC 2.57 m/uL (4.30-5.90); RDW 12.4 % (11.5-15.5); WBC 6.1 k/uL (3.8-10.6)
[2023-03-04 13:43] LABS: HGB 7.8 gm/dL (13.0-17.5)
--- NOTE | 2023-03-04 14:35 | P.PN ---
Subjective Progress Note Date: 03/04/23 This is a pleasant 42-year-old male with medical history significant for hypertension, osteoarthritis, daily smoker and daily alcohol use. Patient presents to the hospital for left direct anterior total hip arthroplasty secondary to left hip avascular necrosis with collapse. Patient is postoperative day #1 and evaluated on the medical floor. Patient on evaluation is complaining of significant pain and swelling of the left hip and reports pain 10/10 and states he had difficulty working with physical therapy. He is asking to talk with orthopedics. He is denying any shortness of breath. Denying any numbness or tingling in the leg. He has +2 pulses bilaterally. Vital signs are stable on room air at 95% oxygen saturation and BP 124/84. 03/03/2023 Patient is evaluated today ambulating in the room with walker. He has been up to the bathroom, reports passing gas. He continues to report significant pain to the left leg mostly the outer aspect of the left thigh. States there is some numbness/tingling. He had a venous doppler done yesterday which reveals a positive DVT of the left lower extremity involving the popliteal vein proximally. He was started on heparin gtt which was cleared by orthopedic surgery. Patient was seen in consultation by vascular services today and there is no surgical intervention required. Patient has been transitioned to xarelto. He has +2 pedal pulse bilaterally. The swelling of the left thigh at the surgical site appears improving from yesterday. Patient is tolerating activity better today. His white count has normalized to 9.4. He reports using his incentive spirometer. He is afebrile and on room air. 5/6. Patient seen and examined. Still has swelling of left thigh. Hemoglobin this morning is 7.6. Complaint of nausea . REVIEW OF SYSTEMS: CONSTITUTIONAL: No fever, no malaise,. CARDIOVASCULAR: No chest pain, no palpitations, no syncope. PULMONARY: No shortness of breath, no cough, GASTROINTESTINAL: As mentioned above NEUROLOGICAL: No headaches, no weakness, PHYSICAL EXAMINATION: GENERAL: The patient is alert and oriented x3, not in any acute distress. Well developed, well nourished. HEENT: Pupils are round and equally reacting to light. EOMI. No scleral icterus. No conjunctival pallor. Normocephalic, atraumatic. No pharyngeal erythema. No thyromegaly. CARDIOVASCULAR: S1 and S2 present. No murmurs, rubs, or gallops. PULMONARY: Chest is clear to auscultation, no wheezing or crackles. ABDOMEN: Soft, nontender, nondistended, normoactive bowel sounds. No palpable organomegaly. MUSCULOSKELETAL: No joint swelling or deformity. EXTREMITIES: No cyanosis, clubbing, or pedal edema. NEUROLOGICAL: Gross neurological examination did not reveal any focal deficits. SKIN: No rashes. Assessment and plan Left hip avascular necrosis status post total left arthroplasty Acute DVT left popliteal Mild leukocytosis resolved History of hypertension blood pressure is in the 140s systolic today expect this is due to pain History of alcohol use History of nicotine use History of migraine Plan; Monitor vital signs Monitor CBC Monitor CMP Ordered ultrasound of left thigh Continue Xarelto for acute DVT Continue pain management Follow-up on PTOT recommendations Objective - Vital Signs Vital signs: Vital Signs Temp 98.1 F 03/04/23 07:58 Pulse 113 H 03/04/23 08:00 Resp 18 03/04/23 08:00 BP 114/73 03/04/23 07:58 Pulse Ox 98 03/04/23 07:58 FiO2 Intake & Output 03/03/23 03/04/23 03/04/23 18:59 06:59 18:59 Intake Total 22.596 1100 Output Total 800 200 Balance -777.404 900 Intake: Intake, IV Titration 22.596 1100 Amount Heparin Sod,Pork in 0.45% 22.596 NaCl 25,000 unit In 0.45 % NaCl 1 250ml.bag @ 18 UNITS/KG/HR 14.526 mls/hr IV .[id number] [facility] Rx#: [id number] Lactated Ringers 1,000 ml 1100 @ 100 mls/hr IV .Q10H [facility] Rx#:[id number] Output: Urine 800 200 Other: # Voids 2 1 - Labs CBC & Chem 7: 03/04/23 13:18 Labs: Abnormal Lab Results - Last 24 Hours (Table) 03/04/23 Range/Units 05:08 RBC 2.56 L (4.40-5.60) X 10*6/uL Hgb 7.5 L (13.0-17.0) g/dL Hct 23.6 L (39.6-50.0) % MCHC 31.8 L (32.0-37.0) g/dL
--- NOTE | 2023-03-04 16:57 | P.PN ---
Progress Note - Text Progress Note Date: 03/04/23 Patient was seen at bedside this afternoon and his hospital course over the last 24 hours was reviewed. Briefly the patient had an uncomplicated total hip replacement this past Monday. On postoperative day #1 he had swelling in the left thigh and an ultrasound showed a DVT. He was started on a heparin drip and then transitioned to an oral anticoagulant. His pain and swelling have been improving over the last 48 hours. This morning his hemoglobin dropped to 7.3. Internal medicine initially ordered an ultrasound which was changed to a CTA at the request of vascular surgery. This afternoon at the time of my evaluation he is actually doing much better clinically. He has some discomfort in his thigh but his pain is better controlled. He appears comfortable. A focused examination of the left lower extremity was conducted. On inspection there is diffuse swelling of the thigh but it is soft and compressible. His dressing is intact with no active drainage. Femoral nerve function is intact as he is able to actively fire his quadriceps and perform a straight leg raise. Distally motor and sensory function are intact. We will follow up the radiologist's read on the CTA and I appreciate vascular surgery's input. The patient likely has a hematoma in his thigh as he recently had a total hip replacement and had to be started on anticoagulation for his DVT. Since his hemoglobin is stable, his thigh is soft, his incision is not draining, and his femoral nerve function is intact I would like to avoid taking the patient back to surgery - since he is currently anticoagulated for his DVT a second surgery would likely make his bleeding worse. If the CTA shows any vascular abnormalities I will defer to vascular surgery for management. His hip implants appear well positioned on the CT and I don't see any fractures. I discussed all of this with the patient and he understands. I will obviously continue to very closely follow the patient.
--- NOTE | 2023-03-04 17:55 | CT ---
CTA abdomen and left lower extremity. HISTORY: Left lower extremity pain and swelling post left hip replacement. COMPARISON: None. TECHNIQUE: Multiple axial images were obtained through the abdomen and lower extremities following un eventful administration of nonionic IV contrast material. Exam was performed according to the CTA pro tocol. 3-D postprocessing was performed. Findings: Inflow CTA:: The caliber of the abdominal aorta is normal and there is no evidence of aneurysm, stenosis or fillin g defect. The origins of the mesenteric arteries and renal arteries are widely patent. The kidneys pe rfuse rapidly and there is no solid renal mass or hydronephrosis. The common and external iliac arteries are widely patent bilaterally without stenosis or aneurysm. Outflow CTA: Common femoral arteries and superficial femoral arteries are widely patent bilaterally without arteri osclerosis, stenosis or filling defect. No stenoses or filling defects within the popliteal arteries bilaterally. Runoff CTA: There is three-vessel runoff bilaterally without stenosis or filling defect. Nonvascular findings: There are postsurgical changes of total left hip. There is diffuse soft tissue edema involving the left thigh from the groin to the knee. There is marked soft tissue swelling within the anterior musculature of the left thigh and there are multiple air bubbles in the subcutaneous tunnel tissues and within the anterior musculature and fasci al planes. The findings are suspicious for infectious process and necrotizing fasciitis cannot be exc luded. IMPRESSION: 1. No evidence of ischemia of the left lower extremity. 2. Marked diffuse swelling of the left thigh with subcutaneous and intramuscular gas within the anter ior left thigh musculature. Infectious process such as necrotizing fasciitis is not excluded. 3. Total left hip.
[2023-03-04] MEDS: hydrOXYzine pamoate 25 MG CAP PO PRN (18:42)
[2023-03-04] MEDS: SENNOSIDES-DOCUSATE SODIUM 1 EACH TAB PO SCH (20:59)
[2023-03-05] MEDS: LACTATED RINGERS 1,000 ML IV SCH ×4 (02:03→23:19)
[2023-03-05] MEDS: oxyCODONE-APAP 5-325MG 1 EACH TAB PO PRN ×3 (05:44→21:56)
[2023-03-05] MEDS: RIVAROXABAN 15 MG TAB PO SCH ×2 (06:35→17:19)
--- NOTE | 2023-03-05 08:50 | P.PN ---
Subjective Progress Note Date: 03/05/23 The patient is complaining of a headache this morning and states that he feels sleepy. He denies chest pain or shortness of breath. He denies palpitations. The pain in his left leg is significantly improved. Objective - Vital Signs Vital signs: Vital Signs Temp 98.5 F 03/05/23 07:24 Pulse 85 03/05/23 07:24 Resp 17 03/05/23 07:24 BP 120/70 03/05/23 07:24 Pulse Ox 94 L 03/05/23 07:24 FiO2 Intake & Output 03/04/23 03/05/23 03/05/23 18:59 06:59 18:59 Intake Total 700 Balance 700 Intake: Intake, IV Titration 700 Amount Lactated Ringers 1,000 ml 700 @ 100 mls/hr IV .Q10H [facility] Rx#:[id number] Other: Voiding Method Toilet # Voids 3 2 - Exam On exam the patient is alert and able to answer questions. A focused exam of the left leg was conducted. On inspection there is a clean-appearing dressing over the hip. There is mild surrounding ecchymosis and swelling throughout the thigh. There is no overlying erythema, warmth, subcutaneous crepitance, drainage, or open wounds. There is no pain with passive range of motion of the hip or knee. Femoral nerve function is intact. Distally the patient is able to actively plantarflex and dorsiflex his ankle and toes. - Labs CBC & Chem 7: 03/04/23 13:18 Labs: Abnormal Lab Results - Last 24 Hours (Table) 03/04/23 03/04/23 Range/Units 05:08 13:18 RBC 2.56 L 2.57 L (4.40-5.60) X 10*6/uL Hgb 7.5 L 7.8 L D (13.0-17.0) g/dL Hct 23.6 L 23.4 L (39.6-50.0) % MCHC 31.8 L (32.0-37.0) g/dL Assessment and Plan Plan: Overall the patient continues to improve following his total hip replacement and DVT. His exam is relatively benign. I reviewed the CTA results. There is absolutely no evidence of a necrotizing soft tissue infection clinically. His exam and imaging is most consistent with postoperative changes, a DVT requiring anticoagulation and edema throughout the thigh. Would recommend continued obse rvation and gentle mobilization with therapy. DVT treatment per medicine. If the patient is doing well tomorrow morning will plan for discharge home.
[2023-03-05] MEDS: ASPIRIN 81 MG PO SCH ×2 (08:58→21:56)
[2023-03-05 10:39] LABS: HCT 22.3 % (39.6-50.0); HGB 7.3 g/dL (13.0-17.0); MCHC 32.7 g/dL (32.0-37.0); MCV 91.8 fL (80.0-97.0); Mean Platelet Volume 10.3 fL (9.5-12.2); NRBC Per 100 WBC 0 /100 WBCS (0.0-0.0); Platelet Count 174 X 10*3/uL (140-440); RBC 2.43 X 10*6/uL (4.40-5.60); RDW 12.3 % (11.5-14.5); WBC 6.22 X 10*3/uL (4.50-10.00)
[2023-03-05 11:09] LABS: African American GFR (CKD) 127.7 (60.0-200.0); Albumin 3.3 g/dL (3.8-4.9); Albumin/Globulin Ratio 2.06 (1.60-3.17); Anion Gap 4.3 mmol/L (10.00-18.00); Blood Urea Nitrogen 9.6 mg/dL (9.0-27.0); Calcium 8.7 mg/dL (8.7-10.3); Carbon Dioxide 30.7 mmol/L (20.0-27.5); Globulin 1.6 g/dL (1.6-3.3); Non-African American GFR(CKD) 110.2 (60.0-200.0); Potassium 4.2 mmol/L (3.5-5.5); Total Bilirubin 0.3 mg/dL (0.30-1.20); Total Protein 4.9 g/dL (6.2-8.2)
--- NOTE | 2023-03-05 13:59 | P.PN ---
Subjective Progress Note Date: 03/05/23 This is a pleasant 42-year-old male with medical history significant for hypertension, osteoarthritis, daily smoker and daily alcohol use. Patient presents to the hospital for left direct anterior total hip arthroplasty secondary to left hip avascular necrosis with collapse. Patient is postoperative day #1 and evaluated on the medical floor. Patient on evaluation is complaining of significant pain and swelling of the left hip and reports pain 10/10 and states he had difficulty working with physical therapy. He is asking to talk with orthopedics. He is denying any shortness of breath. Denying any numbness or tingling in the leg. He has +2 pulses bilaterally. Vital signs are stable on room air at 95% oxygen saturation and BP 124/84. 03/03/2023 Patient is evaluated today ambulating in the room with walker. He has been up to the bathroom, reports passing gas. He continues to report significant pain to the left leg mostly the outer aspect of the left thigh. States there is some numbness/tingling. He had a venous doppler done yesterday which reveals a positive DVT of the left lower extremity involving the popliteal vein proximally. He was started on heparin gtt which was cleared by orthopedic surgery. Patient was seen in consultation by vascular services today and there is no surgical intervention required. Patient has been transitioned to xarelto. He has +2 pedal pulse bilaterally. The swelling of the left thigh at the surgical site appears improving from yesterday. Patient is tolerating activity better today. His white count has normalized to 9.4. He reports using his incentive spirometer. He is afebrile and on room air. 5/6. Patient seen and examined. Still has swelling of left thigh. Hemoglobin this morning is 7.6. Complaint of nausea . /. Patient seen and examined. Still has left thigh swelling but states pain has improved. Denies any lightheadedness or dizziness. Vital signs stable REVIEW OF SYSTEMS: CONSTITUTIONAL: No fever, no malaise,. CARDIOVASCULAR: No chest pain, no palpitations, no syncope. PULMONARY: No shortness of breath, no cough, GASTROINTESTINAL: As mentioned above NEUROLOGICAL: No headaches, no weakness, PHYSICAL EXAMINATION: GENERAL: The patient is alert and oriented x3, not in any acute distress. Well developed, well nourished. HEENT: Pupils are round and equally reacting to light. EOMI. No scleral icterus. No conjunctival pallor. Normocephalic, atraumatic. No pharyngeal erythema. No thyromegaly. CARDIOVASCULAR: S1 and S2 present. No murmurs, rubs, or gallops. PULMONARY: Chest is clear to auscultation, no wheezing or crackles. ABDOMEN: Soft, nontender, nondistended, normoactive bowel sounds. No palpable organomegaly. MUSCULOSKELETAL: No joint swelling or deformity. EXTREMITIES: No cyanosis, clubbing, or pedal edema. NEUROLOGICAL: Gross neurological examination did not reveal any focal deficits. SKIN: No rashes. Assessment and plan Left hip avascular necrosis status post total left arthroplasty Acute DVT left popliteal Mild leukocytosis resolved History of hypertension blood pressure is in the 140s systolic today expect this is due to pain History of alcohol use History of nicotine use History of migraine Plan; Monitor vital signs Monitor CBC Monitor CMP CTA of left lower extremities was reviewed, no suspicion of ischemia of ext remity, marked diffuse swelling of left thigh with subcutaneous and intramuscular gas suspicious of necrotizing fasciitis. Orthopedics evaluated, clinically There is absolutely no evidence of a necrotizing soft tissue infection, and they recommended conservative management with continued observati on and gentle mobilization of the leg Continue Xarelto for acute DVT Continue pain management Follow-up on PTOT recommendations Objective - Vital Signs Vital signs: Vital Signs Temp 98.5 F 03/05/23 07:24 Pulse 85 03/05/23 07:24 Resp 17 03/05/23 07:24 BP 120/70 03/05/23 07:24 Pulse Ox 94 L 03/05/23 07:24 FiO2 Intake & Output 03/04/23 03/05/23 03/05/23 18:59 06:59 18:59 Intake Total 700 Balance 700 Intake: Intake, IV Titration 700 Amount Lactated Ringers 1,000 ml 700 @ 100 mls/hr IV .Q10H [facility] Rx#:[id number] Other: Voiding Method Toilet Toilet # Voids 3 2 - Labs CBC & Chem 7: 03/05/23 04:00 03/05/23 04:00 Labs: Abnormal Lab Results - Last 24 Hours (Table) 03/04/23 03/05/23 Range/Units 13:18 04:00 RBC 2.57 L 2.43 L (4.30-5.90) m/uL Hgb 7.8 L D 7.3 L (13.0-17.5) gm/dL Hct 23.4 L 22.3 L (39.0-53.0) %
[2023-03-05] MEDS: SENNOSIDES-DOCUSATE SODIUM 1 EACH TAB PO SCH (21:56)
[2023-03-06] MEDS: oxyCODONE-APAP 5-325MG 1 EACH TAB PO PRN ×2 (06:43→13:11)
[2023-03-06] MEDS: RIVAROXABAN 15 MG TAB PO SCH (06:43)
[2023-03-06 07:34] VITALS: BP 114/76; PULSE 86; RESP 18; TEMP 98.1
[2023-03-06] MEDS: LACTATED RINGERS 1,000 ML IV SCH ×2 (08:14)
[2023-03-06] MEDS: ASPIRIN 81 MG PO SCH (08:16)
[2023-03-06 11:10] LABS: Basophils # (A) 0.02 X 10*3/uL (0.00-0.10); Basophils % (A) 0.3 %; Eosinophils # (A) 0.24 X 10*3/uL (0.04-0.35); Eosinophils % (A) 3.9 %; HCT 24.6 % (39.6-50.0); Immature Grans, Automated 0.7 %; Lymphocytes # (A) 1.73 X 10*3/uL (0.90-5.00); Lymphocytes % (A) 28.2 %; MCH 30.1 pg (27.0-32.0); MCHC 32.5 g/dL (32.0-37.0); MCV 92.5 fL (80.0-97.0); Mean Platelet Volume 9.9 fL (9.5-12.2); Monocytes # (A) 0.38 X 10*3/uL (0.20-1.00); Monocytes % (A) 6.2 %; NRBC Per 100 WBC 0 /100 WBCS (0.0-0.0); Neutrophils # (A) 3.72 X 10*3/uL (1.80-7.70); Neutrophils % (A) 60.7 %; Platelet Count 235 X 10*3/uL (140-440); RBC 2.66 X 10*6/uL (4.40-5.60); RDW 12.5 % (11.5-14.5); WBC 6.13 X 10*3/uL (4.50-10.00)
--- NOTE | 2023-03-06 11:43 | P.PN ---
Subjective Progress Note Date: 03/06/23 Patient was seen and examined today as follow-up. He is postop left pole hip replacement on 03/01/2023. Initially vascular surgery was consulted for left lower extremity DVT. Patient currently on Xarelto. Patient continued to have increased swelling and discomfort in the left thigh to the knee. CTA with runoff was ordered and imaging reviewed by Dr. Poon. No concerns for hematoma. No evidence of ischemia of left lower extremity. Marked diffuse swelling of the left thigh with subcutaneous and intramuscular gas within the anterior thigh musculature. Discussion at the time of imaging with radiology and Orthopedics. Recent Total left hip, ortho with low suspicion for infectious process. Today patient states his left leg is feeling better. Pain improving. He's been afebrile. He denies any shortness breath or chest pain. Objective - Vital Signs Vital signs: Vital Signs Temp 98.1 F 03/06/23 07:20 Pulse 86 03/06/23 07:20 Resp 18 03/06/23 07:20 BP 114/76 03/06/23 07:20 Pulse Ox 97 03/06/23 07:20 FiO2 Intake & Output 03/05/23 03/06/23 03/06/23 18:59 06:59 18:59 Intake Total 550 240 Balance 550 240 Intake: Intake, IV Titration 240 Amount Lactated Ringers 1,000 ml 240 @ 20 mls/hr IV .Q24H [facility] Rx#:[id number] Oral 550 Other: Voiding Method Toilet # Voids 2 4 - Exam General appearance: The patient is alert, oriented, appears in no acute distress. HET: Head is normocephalic and atraumatic. Pupils are equal and reactive. Neck: Supple. Heart: Regular. Lungs: Equal expansion, normal respiratory effort. Abdomen: Soft, nontender, nondistended. Extremities: Left hip with dressing clean dry and intact. Left thigh to knee with +2 edema. Left lower extremity with FREYA hose and SCD machine in place. Palpable pedal pulse. Neurological: Alert and oriented 3. - Labs CBC & Chem 7: 03/06/23 06:06 03/05/23 04:00 Labs: Abnormal Lab Results - Last 24 Hours (Table) 03/05/23 03/05/23 Range/Units 04:00 04:00 RBC 2.43 L (4.40-5.60) X 10*6/uL Hgb 7.3 L (13.0-17.0) g/dL Hct 22.3 L (39.6-50.0) % Carbon Dioxide 30.7 H (20.0-27.5) mmol/L Anion Gap 4.30 L (10.00-18.00) mmol/L Total Protein 4.9 L (6.2-8.2) g/dL Albumin 3.3 L (3.8-4.9) g/dL Assessment and Plan Assessment: 1. DVT left lower extremity post left direct anterior total hip arthroplasty 2. Postop day #6 left direct anterior total hip arthroplasty 3. Left thigh swelling, CTA reporting left thigh subcutaneous and intramuscular gas within the anterior thigh musculature 3. Left hip avascular necrosis with collapse 4. Former smoker Plan: 1. Continue Xarelto 2. Left lower extremity CTA imaging reviewed by Dr. Poon, no evidence of hematoma. No indication for any vascular surgical intervention. 3. FREYA hose bilateral lower extremities 4. Activity as tolerated and per recommendations from orthopedics 5. Continue with recommendations from orthopedic surgeon regarding left thigh soft tissue swelling with subcutaneous and intramuscular gas Thank you for this consultation, we will sign off at this time. The impression and plan of care has been dictated as directed. Dr. Poon I performed a history and examination of this patient, discussed the same with the dictator. I agree with the dictator's note ,documented as a scribe. Any additional findings or plans will be noted.
--- NOTE | 2023-03-06 12:48 | P.DS ---
Providers Date of admission: 03/06/23 08:47 Expected date of discharge: 03/06/23 Attending physician: Curry Xiao Consults: 03/01/23 17:46 Consult Physician Routine Consulting Provider: Benson Westfall Consult Reason/Comments: medical management Do you want consulting provider notified?: Yes 03/02/23 22:44 Consult Physician Routine Consulting Provider: Nohelia Poon Consult Reason/Comments: DVT left surgical leg Do you want consulting provider notified?: Yes, Notify in am Primary care physician: Stated None Hospital Course: This is a 42-year-old male with avascular necrosis of the left hip. After discussion and consideration patient elects to proceed with left direct anterior total hip arthroplasty. The patient is seen preoperatively by Dr. Dalal and cleared for surgery. Patient is admitted to [facility] on 03/21/23 for left direct anterior total hip arthroplasty. Patient developed an acute DVT of the left lower extremity which was diagnosed on post-op day #1. Patient was initially started on IV heparin and has now been transitioned to oral Xarelto. Vascular surgery was consulted inpatient as well. The patient is doing well postoperatively. Labs and vital signs are stable on day of discharge. Patient is examined bedside this morning with Dr. Xiao. Pain in the left hip is well-controlled at this time. He has been working with physical therapy and is able to ambulate with a walker. He does feel like his swelling and pain are improving in the left thigh and hip. He is comfortable returning home today. Per nursing, he passed physical therapy today to return home. On examination, the patient is sitting in bed in no apparent distress. He is alert and oriented 3. On inspection of the left hip, there is a clean, dry, intact Opsite surgical dressing in place. No bleeding or drainage to the dressing. There swelling of the thigh, thigh is soft and compressible. Motor and sensory function is intact of the left lower extremity. Femoral nerve function intact. Left lower extremity is warm and well-perfused. Calf is soft nontender to palpation. Patient is discharged to home with home health care in good condition today, pending medical clearance. Please see med rec for accurate list of discharge medications. Patient should follow-up in the office at [facility] in 2 weeks. Plan - Discharge Summary Discharge Rx Participant: Yes New Discharge Prescriptions: New Docusate [Colace] 100 mg PO BID #60 capsule Omeprazole 40 mg PO DAILY 30 Days #30 cap Rivaroxaban [Xarelto Starter Pack] 0 mg PO DIRECTED 30 Days #1 packet oxyCODONE HCL/ACETAMINOPHEN [Percocet 5-325 mg] 1 tab PO Q6HR PRN 7 Days #28 tab PRN Reason: Pain No Action Acetaminophen [Tylenol Extra Strength] 500 - 1,000 mg PO DIRECTED PRN PRN Reason: Pain Discharge Medication List Acetaminophen [Tylenol Extra Strength] 500 - 1,000 mg PO DIRECTED PRN 02/23/23 [History] Docusate [Colace] 100 mg PO BID #60 capsule 03/02/23 [Rx] Omeprazole 40 mg PO DAILY 30 Days #30 cap 03/02/23 [Rx] Rivaroxaban [Xarelto Starter Pack] 0 mg PO DIRECTED 30 Days #1 packet 03/03/23 [Rx] oxyCODONE HCL/ACETAMINOPHEN [Percocet 5-325 mg] 1 tab PO Q6HR PRN 7 Days #28 tab 03/03/23 [Rx] Follow up Appointment(s)/Referral(s): Jalil Bhardwaj DO [STAFF PHYSICIAN] - 03/28/23 2:45 pm () [facility], [NON-STAFF] - ([facility] will call you to arrange a visit) Curry Xiao MD [Medical Doctor] - 03/15/23 9:20 am Activity/Diet/Wound Care/Special Instructions: Weight bear to tolerance on operative extremity with a walker. Keep operative dressing in place until follow-up in the office. Call the office if dressing becomes saturated or falls off. May shower over dressing. Take pain medications as needed. Take Xarelto as prescribed by vascular surgery. Follow-up in the office at [facility] in two weeks. Call the office with any questions or concerns,
--- NOTE | 2023-03-06 13:39 | P.PN ---
Subjective Progress Note Date: 03/06/23 This is a pleasant 42-year-old male with medical history significant for hypertension, osteoarthritis, daily smoker and daily alcohol use. Patient presents to the hospital for left direct anterior total hip arthroplasty secondary to left hip avascular necrosis with collapse. Patient is postoperative day #1 and evaluated on the medical floor. Patient on evaluation is complaining of significant pain and swelling of the left hip and reports pain 10/10 and states he had difficulty working with physical therapy. He is asking to talk with orthopedics. He is denying any shortness of breath. Denying any numbness or tingling in the leg. He has +2 pulses bilaterally. Vital signs are stable on room air at 95% oxygen saturation and BP 124/84. 03/03/2023 Patient is evaluated today ambulating in the room with walker. He has been up to the bathroom, reports passing gas. He continues to report significant pain to the left leg mostly the outer aspect of the left thigh. States there is some numbness/tingling. He had a venous doppler done yesterday which reveals a positive DVT of the left lower extremity involving the popliteal vein proximally. He was started on heparin gtt which was cleared by orthopedic surgery. Patient was seen in consultation by vascular services today and there is no surgical intervention required. Patient has been transitioned to xarelto. He has +2 pedal pulse bilaterally. The swelling of the left thigh at the surgical site appears improving from yesterday. Patient is tolerating activity better today. His white count has normalized to 9.4. He reports using his incentive spirometer. He is afebrile and on room air. 5/6. Patient seen and examined. Still has swelling of left thigh. Hemoglobin this morning is 7.6. Complaint of nausea . 5/7. Patient seen and examined. Still has left thigh swelling but states pain has improved. Denies any lightheadedness or dizziness. Vital signs stable 5/8. Patient seen and examined. Hemoglobin this morning is 8. States thigh pain has improved REVIEW OF SYSTEMS: CONSTITUTIONAL: No fever, no malaise,. CARDIOVASCULAR: No chest pain, no palpitations, no syncope. PULMONARY: No shortness of breath, no cough, GASTROINTESTINAL: As mentioned above NEUROLOGICAL: No headaches, no weakness, PHYSICAL EXAMINATION: GENERAL: The patient is alert and oriented x3, not in any acute distress. Well developed, well nourished. HEENT: Pupils are round and equally reacting to light. EOMI. No scleral icterus. No conjunctival pallor. Normocephalic, atraumatic. No pharyngeal erythema. No thyromegaly. CARDIOVASCULAR: S1 and S2 present. No murmurs, rubs, or gallops. PULMONARY: Chest is clear to auscultation, no wheezing or crackles. ABDOMEN: Soft, nontender, nondistended, normoactive bowel sounds. No palpable organomegaly. MUSCULOSKELETAL: No joint swelling or deformity. EXTREMITIES: No cyanosis, clubbing, or pedal edema. NEUROLOGICAL: Gross neurological examination did not reveal any focal deficits. SKIN: No rashes. Assessment and plan Left hip avascular necrosis status post total left arthroplasty Acute DVT left popliteal Mild leukocytosis resolved History of hypertension blood pressure is in the 140s systolic today expect this is due to pain History of alcohol use History of nicotine use History of migraine Plan; Monitor vital signs Monitor CBC Monitor CMP CTA of left lower extremities was reviewed, no suspicion of ischemia of extrem ity, marked diffuse swelling of left thigh with subcutaneous and intramuscular gas suspicious of necrotizing fasciitis. Orthopedics evaluated, and recommended There is absolutely no evidence of a necrotizing soft tissue infection, and they recommended conservative management with continued observation and gentle mobilization of the leg Continue Xarelto for acute DVT Continue pain management Follow-up on PTOT recommendations Objective - Vital Signs Vital signs: Vital Signs Temp 98.1 F 03/06/23 07:20 Pulse 86 03/06/23 07:20 Resp 18 03/06/23 07:20 BP 114/76 03/06/23 07:20 Pulse Ox 97 03/06/23 07:20 FiO2 Intake & Output 03/05/23 03/06/23 03/06/23 18:59 06:59 18:59 Intake Total 550 240 Balance 550 240 Intake: Intake, IV Titration 240 Amount Lactated Ringers 1,000 ml 240 @ 20 mls/hr IV .Q24H [place] Rx#:[id number] Oral 550 Other: Voiding Method Toilet # Voids 2 4 1 - Labs CBC & Chem 7: 03/06/23 06:06 03/05/23 04:00 Labs: Abnormal Lab Results - Last 24 Hours (Table) 03/06/23 Range/Units 06:06 RBC 2.66 L (4.40-5.60) X 10*6/uL Hgb 8.0 L (13.0-17.0) g/dL Hct 24.6 L (39.6-50.0) %
[2023-03-24] MEDS ORDERED: RIVAROXABAN 20 MG TAB PO SCH (09:00)
== END 2023-03-06 15:11 | disposition home health service (06) | DRG 982 ==
LOC: OR 13:51 → 4SSUR 17:36 → OR 03-02 16:34 → 4SSUR 03-02 16:34 → OBSVTOIN 03-06 08:47
PROVIDERS: ADMIT Orthopaedic Surgery; ATTEND Orthopaedic Surgery
PROC: 0SRB04A Replacement of Left Hip Joint with Ceramic on Polyethylene Synthetic Substitute, Uncemented, Open Approach (ICD-10-PCS; principal; 2023-03-01 15:40)
DX: I82.432 Acute embolism and thrombosis of left popliteal vein (principal); M87.852 Other osteonecrosis, left femur; R71.0 Precipitous drop in hematocrit; M16.12 Unilateral primary osteoarthritis, left hip; I10 Essential (primary) hypertension; D72.829 Elevated white blood cell count, unspecified; F10.90 Alcohol use, unspecified, uncomplicated; G43.909 Migraine, unspecified, not intractable, without status migrainosus; Z53.20 Procedure and treatment not carried out because of patient's decision for unspecified reasons; Z28.310 Unvaccinated for COVID-19; Z87.891 Personal history of nicotine dependence; Z87.442 Personal history of urinary calculi; Z91.013 Allergy to seafood; Z86.16 Personal history of COVID-19
CPT/HCPCS: 64447; 73501; 73502; 80053; 84484; 85025; 85027; 85730; 86850; 86900; 86901; 88300

== ENCOUNTER → 2023-08-07 | Outpatient (CLI) | payer OTHER ==
[2023-08-07 16:23] LABS: INR 1.1 (<1.2); Partial Thromboplastin Time 27.3 sec (22.0-30.0); Prothrombin Time 11.1 sec (9.0-12.0)
[2023-08-07 21:34] LABS: Basophils # (A) 0.04 X 10*3/uL (0.00-0.10); Basophils % (A) 0.8 %; Eosinophils # (A) 0.14 X 10*3/uL (0.04-0.35); Eosinophils % (A) 2.6 %; HCT 46.3 % (39.6-50.0); Lymphocytes # (A) 1.78 X 10*3/uL (0.90-5.00); Lymphocytes % (A) 33.5 %; MCHC 32.4 d/dL (32.0-37.0); MCV 83.4 FL (80.0-97.0); Mean Platelet Volume 10.8 FL (9.5-12.2); Monocytes # (A) 0.39 X 10*3/uL (0.20-1.00); Monocytes % (A) 7.3 %; NRBC Per 100 WBC 0 X 10*3/uL (0.00-0.01); Neutrophils # (A) 2.95 X 10*3/uL (1.80-7.70); Neutrophils % (A) 55.6 %; Platelet Count 324 X 10*3/uL (140-440); RBC 5.55 X 10*6/uL (4.40-5.60); RDW 13.8 % (11.5-14.5); WBC 5.31 X 10*3/uL (4.50-10.00)
[2023-08-07 22:50] LABS: Appearance,Urine Turbid (Clear); Bacteria,Urine None Seen (None Seen); Bilirubin,Urine Small (Negative); Blood,Urine Trace (Negative); Calcium Oxalate Crystals,Urine Present (None Seen); Color,Urine Dark Yellow (Yellow); Ketones,Urine Trace (Negative); Nitrite,Urine Negative (Negative); PH, Urine 5.5; Specific Gravity,Urine 1.026 (1.001-1.030)
[2023-08-08 02:05] LABS: ALT 25 U/L (10-49); AST 16 U/L (14-35); Albumin 4.8 d/dL (3.8-4.9); Alkaline Phosphatase 90 U/L (41-126); BUN/Creat Ratio 16.22 Ratio (12.00-20.00); Blood Urea Nitrogen 14.6 mg/dL (9.0-27.0); Calcium 10.2 mg/dL (8.7-10.3); Carbon Dioxide 24.6 mmol/L (21.6-31.8); Chloride 103 mmol/L (96-109); Globulin 2.4 d/dL (1.6-3.3); Glucose 90 mg/dL (70-110); Potassium 4.6 mmol/L (3.5-5.5); Sodium 139 mmol/L (135-145); Total Bilirubin 0.8 mg/dL (0.3-1.2); Total Protein 7.2 d/dL (6.2-8.2)
== END | disposition home or self-care (01) ==
LOC: LABPAT 14:56
PROVIDERS: ATTEND Orthopaedic Surgery
DX: Z01.818 Encounter for other preprocedural examination (principal); M16.11 Unilateral primary osteoarthritis, right hip
CPT/HCPCS: 80053; 81001; 85025; 85610; 85730; 86850; 86900; 86901; 87070; 93005

== ENCOUNTER 2023-08-18 08:10 | Day surgery (SDC) | payer OTHER ==
[~2023-08-18 08:10] MED LIST changes: -DEXAMETHASONE SOD PHOSPHATE 4 MG/ML 1 ML VIAL IV ONE; -HYDROmorphone 0.5 MG/0.5 ML SYRINGE IVP PRN; -ROPIVACAINE/EPI/CLONIDINE/KET 50 ML SYRINGE MISCELLANE PRN; +TRANEXAMIC 1,000 MG/100ML-NACL 1,000 MG in SALINE 1 100ML.BAG IV PRN; +TRANEXAMIC 1,000 MG/100ML-NACL 1,000 MG in SALINE 1 100ML.BAG IVPB PRN; -TRANEXAMIC ACID IN NACL,ISO-OS 1,000 MG in SALINE 1 100ML.BAG IV PRN; -TRANEXAMIC ACID IN NACL,ISO-OS 1,000 MG in SALINE 1 100ML.BAG IVPB PRN
[2023-08-18] MEDS: LACTATED RINGERS 1,000 ML IV SCH ×3 (09:20→20:35)
[2023-08-18] MEDS ORDERED: MIDAZOLAM 2 MG/2 ML VIAL IVP ONE (09:26)
[2023-08-18] MEDS ORDERED: fentaNYL (PF) 50 MCG/ML 2 ML AMP IVP ONE (09:27)
[2023-08-18] MEDS ORDERED: LIDOCAINE 1% INJ 10MG/ML (20 ML MDV) ONE (09:54)
[2023-08-18] MEDS ORDERED: TRANEXAMIC 1,000 MG/100ML-NACL PREMIX BAG ONE (09:54)
[2023-08-18] MEDS ORDERED: NEOSTIGMINE 1 MG/ML 10 ML VIAL ONE (09:54)
[2023-08-18] MEDS ORDERED: hydrALAZINE HCL 20 MG/ML 1 ML VIAL ONE (09:54)
[2023-08-18] MEDS ORDERED: ROCURONIUM 10 MG/ML (5 ML VIAL) IV ONE (09:54)
[2023-08-18] MEDS ORDERED: GLYCOPYRROLATE 0.2 MG/ML 2 ML VIAL ONE (09:54)
[2023-08-18] MEDS ORDERED: METOPROLOL TARTRATE 5 MG/5 ML VIAL IVP ONE (09:54)
[2023-08-18] MEDS ORDERED: fentaNYL (PF) 50 MCG/ML 2 ML AMP ONE (09:54)
[2023-08-18] MEDS ORDERED: PROPOFOL 10 MG/ML 20 ML VIAL IV ONE (09:54)
[2023-08-18] MEDS ORDERED: MIDAZOLAM 2 MG/2 ML VIAL ONE (09:54)
[2023-08-18] MEDS ORDERED: ROPIVACAINE 5 MG/ML 30 ML VIAL ONE (09:54)
[2023-08-18] MEDS ORDERED: LACTATED RINGERS 1,000 ML IV ONE ×4 (09:57→13:28)
--- NOTE | 2023-08-18 10:13 | P.ANPRN ---
Procedure Note - Anesthesia - Nerve Block Performed Right Petersen Single Time Out Performed: Yes ([id number]) Date of Procedure: 08/18/23 Procedure Start Time: Procedure Stop Time: Location of Patient: PreOp Indication: Acute Post-Operative Pain, Requested by Surgeon Specifically requested for management of pain by DrRosaura: Curry Xiao Sedation Type: Sedate with meaningful contact maintained Preparation: Sterile Prep Position: Supine Catheter: None Needle Types: Pajunk Needle Gauge: 21 Ultrasound used to visualize needle placement: Yes Ultrasound used to observe medication spread: Yes Injectate: 0.5% Ropivacaine (see comment for volume) (30cc) Blood Aspirated: No Pain Paresthesia on Injection Noted: No Resistance on Injection: Normal Image Stored and Saved: Yes Events: Uneventful and Well Tolerated
[2023-08-18] MEDS: ROPIVACAINE/EPI/CLONIDINE/KET 50 ML SYRINGE MISCELLANE PRN ×2 (10:35→11:06)
--- NOTE | 2023-08-18 11:38 | FL ---
EXAMINATION TYPE: FL guidance operating room DATE OF EXAM: 08/18/2023 HISTORY: Fluoroscopy time Total dose area product (DAP) in uGy*m?, mGy*cm? (or similar): 1.7489 IMPRESSION: 1. Fluoroscopy time.
--- NOTE | 2023-08-18 11:39 | XR ---
EXAMINATION TYPE: XR Hip Limited RT DATE OF EXAM: 08/18/2023 COMPARISON: NONE HISTORY: Postop right hip surgery TECHNIQUE: One view submitted. FINDINGS: There is postsurgical change compatible hip replacement surgery. IMPRESSION: 1. Postoperative change.
[2023-08-18] MEDS ORDERED: HYDROmorphone 0.5 MG/0.5 ML SYRINGE IVP PRN ×2 (11:52)
[2023-08-18] MEDS ORDERED: ONDANSETRON 4 MG/2 ML VIAL IVP PRN (11:52)
[2023-08-18] MEDS ORDERED: hydrOXYzine pamoate 25 MG CAP PO PRN (11:52)
[2023-08-18] MEDS ORDERED: NALOXONE 0.4 MG/ML 1 ML VIAL IV PRN (11:52)
--- NOTE | 2023-08-18 11:55 | P.OP ---
Date of Procedure: 08/18/23 Preoperative Diagnosis: 1. Right hip avascular necrosis with collapse 2. Prior left total hip replacement for avascular necrosis with collapse 3. History of DVT Postoperative Diagnosis: Same Procedure(s) Performed: Right direct anterior total hip arthroplasty Implants: 1. Hannibal Trident II Acetabular Cup, Size #54 2. Hannibal Insignia Size #4 Femoral Stem, High Offset 3. Biolox delta femoral head, 36 mm, -2.5 neck Anesthesia: MARVINA, regional Surgeon: Curry Xiao Lead Tinner #1: Tee Saucedo Estimated Blood Loss (ml): 250 IV fluids (ml): 1,000 Pathology: none sent Condition: stable Disposition: PACU Indications for Procedure: The patient is a very pleasant 43-year-old male who is a history significant for bilateral hip avascular necrosis. He previously underwent a left total hip r eplacement and did well with this. He presented to my office recently with increasing pain in his hip. His x-rays showed signs of avascular necrosis and an MRI was obtained which confirmed avascular necrosis with collapse. Having previously undergone a total hip replacement on the contralateral hip the patient requested proceeding with a right total hip replacement. We discussed the procedure at length. He understands his risks. Following his left hip replacement he had a DVT and was anticoagulated. He understands his risk of both DVT and PE. I had a long discussion with the patient in the office on the potential risks and complications of an elective total hip replacement through a direct anterior approach. Risks discussed include, but are certainly not limited to, risks from anesthesia, superficial infection requiring local wound care or antibiotics, deep kit-prosthetic joint infection and the treatment required to eradicate infection, intraoperative fracture, postoperative periprosthetic fracture, damage to local blood vessels or nerves particularly the lateral femoral cutaneous nerve, delayed wound healing requiring local wound care or possibly surgical debridement, hip dislocation, leg length discrepancy, soft tissue irritation around the total hip implant such as iliopsoas tendinitis or trochanteric bursitis, wear and osteolysis from the implants, squeaking or a udible noises, groin pain, thigh pain, heterotopic ossification, stiffness, aseptic loosening of the implants, dissatisfaction with surgical outcome, need for revision surgery, DVT, PE, swelling of the operative extremity, acute coronary event, stroke, failure to thrive, and possibly loss of life or limb. The patient understands that while these are the most common complications after an elective hip replacement there are certainly other less common complications possible. They were given ample time to ask questions regarding the potential complications of a hip replacement. Following our discussion the patient provided their verbal and written consent to go forward with an elective total hip replacement. Operative Findings: There was a large clear hip effusion. There was a large area of collapse on the superior aspect of the femoral head. The cartilage was friable and easily able to be delaminated from the underlying subchondral bone. The findings were consistent with avascular process and collapse. Description of Procedure: The patient was identified in the preoperative holding area and the correct hip was marked with my initials. I reviewed the procedure and consent with the patient. All of their questions were answered. The patient was then brought back into the operating room by anesthesia. While on the [facility] anesthesia was administered by the anesthesia team. Preoperative antibiotics and tranexamic acid were also given. After the patient was under anesthesia I examined their ankles to determine their preoperative leg length discrepancy. The skin over the anterior aspect of the hip was shaved to remove hair over the site of planned incision. Both feet and ankles were padded with webril and boots for the Galliano were applied. The patient was then carefully transferred onto the Galliano table. A perineal post was immediately placed. The arms were placed on arm holders and were well-padded. Both boots were secured to the spars on the Galliano table. The patient was positioned so that the pelvis was centered over the post. Nonsterile drapes were applied. A timeout was performed identifying the correct patient, operative extremity, and procedure. At this point fluoroscopy was brought in to take preoperative images of the pelvis and operative hip. Using the standing AP pelvis from the office as a template, a comparable image was obtained with fluoroscopy. A metallic bar was used to create a bi-ischial line for use as a reference to leg length adjustments during the procedure. Global offset was also measured on both the operative and nonoperative leg. Fluoroscopy was then brought out and a pre-scrub using a chlorhexidine scrub brush was performed. The operative limb was then prepped and draped in the standard sterile fashion. An anterior longitudinal incision was made lateral and distal to the ASIS. The skin and subcutaneous tissues were incised sharply. The underlying tensor f ascia was identified and incised in its midportion. The fascia was dissected free from the underlying muscle and the muscle belly was retracted. A blunt tipped cobra retractor was placed over the superior neck under the muscle fibers of the gluteus minimus. The deep enveloping fascia of the tensor was incised. The anterior leash of vessels were then identified and cauterized. The fascia between the rectus and the capsule was then incised and the pre-capsular fat was excised. A second Cobra was placed inferior to the neck. The interval between the rectus and iliocapsularis and the hip capsule was developed and a retractor was placed carefully over the anterior rim of the acetabulum. A T-shaped anterior capsulotomy was performed. It was a large villegas of clear synovial fluid The superior capsular leaflet was left in place in the inferior capsular flap was excised. The Cobra retractors were placed intracapsularly. We then made a femoral neck osteotomy according to preoperative and intraoperative templating and confirmed the level of the osteotomy using fluoroscopic imaging. The femoral head was removed, passed off to the back table, and sized. On inspection the femoral head had signs of avascular necrosis and collapse. The superior capsular flap was excised. Retractors were placed circumferentially exposing the acetabulum. We then circumferentially debrided the acetabulum free of labrum and osteophytes. The pulvinar was removed to fully visualize the cotyloid fossa. We then sequentially reamed to achieve peripheral fit and excellent bleeding subchondral bone. The socket was thoroughly irrigated. The acetabular component was impacted into the appropriate position using fluoroscopy to guide version, inclination, and depth of insertion taking care to have a comparable image of the AP pelvis to the standing image taken in the office. An excellent press-fit was achieved and final position was confirmed using fluoroscopy. The press fit was augmented with bony cancellus dome screws. The liner was then impacted into the socket. Attention was then turned to the femur. The remnant dorsal lateral capsule was excised. The short external rotators were visible and protected. A bone hook was used to confirm appropriate translation of the trochanter away from the acetabulum. The leg was then extended and adducted and the bone hook was used to elevate the femur for broaching. A box osteotome and blunt tipped canal sound was then utilized to gain access to the femoral canal. We then sequentially broached the femur in appropriate anteversion until excellent torsional stability was achieved. The neck cut was brought flush to the trial broach with a calcar planar. A trial neck and head were then placed onto the broach and the hip was atraumatically reduced under direct visualization. External rotation to 90 was performed to assess stability. Fluoroscopy was brought in. An AP and lateral fluoroscopic image of the proximal femur was obtained to assess position and fill of the trial broach. An AP of the pelvis was then obtained and matched to the preoperative image taken. A bi-ischial bar was then placed and measurements were taken to assess changes in length and offset. The hip was then carefully dislocated, the proximal femur was exposed, and the trial implants were removed. The wound and proximal femur was thoroughly irrigated using sterile saline and pulsatile lavage. The final femoral implant was dispensed and gently tapped into place generating an excellent press-fit. The trunnion was cleansed and the final head was tapped into place to engage the Che[place] taper. The acetabulum was irrigated and visualized to be free of debris. The hip was carefully reduced. Stability was checked clinically with external rotation to 90 and there was no evidence of instability. Final fluoroscopic images were taken. The wound was then thoroughly irrigated and soaked with a dilute Betadine rinse for 3 minutes. 3 L of sterile saline was irrigated through the wound using pulsatile lavage. Local anesthetic cocktail was injected into the soft tissues around the surgical field. A deep drain was placed. The wound was then closed in layers. A sterile dressing was placed over the surgical incision and drain site. The drapes were taken down and the patient was carefully transferred off of the Galliano table. Following removal of the boots the leg lengths felt acceptable. I personally placed SCDs on both legs prior to leaving the operating room. The patient was then taken to recovery room having tolerated the procedure well. Tee Saucedo PA-C was required as a skilled commercial lines account assistant for patient positioning, surgical exposure, retraction, placement of implants, and closure of the surgical wound. PLAN: The patient can weight-bear as tolerated on the operative extremity. 2 doses of postoperative antibiotics. Due to the patient having had a prior DVT we will consult hematology for recommendations on choice of anticoagulant and duration of treatment. Physical therapy for gait training. Discontinue drain postoperative day #1 if output is less than 100 mL per shift.
[2023-08-18] MEDS: HYDROmorphone 0.5 MG/0.5 ML SYRINGE IVP PRN ×4 (11:57→20:29)
[2023-08-18] MEDS: oxyCODONE-APAP 10-325MG 1 EACH TAB PO PRN (15:23)
--- NOTE | 2023-08-18 21:31 | P.CONS ---
History of Present Illness - Reason for Consult Consult date: 08/18/23 anticoagulation recommendations Requesting physician: Tee Saucedo - Chief Complaint hip surgery - History of Present Illness Patient is a 42-year-old male with a significant medical history for hypertension, osteoarthritis, nicotine and alcohol dependence. Consult was placed for anticoagulation recommendations. Patient had a left total hip arthroplasty secondary to left hip avascular necrosis with collapse in February 2023 with subsequent DVT of LLE. Patient was anticoagulated for 3 months s/p DVT. Patient underwent total right hip arthroplasty today with Dr. Xiao. He reports right hip discomfort but is being well controlled with pain med regimen. Denies any unusual swelling or pain of lower extremities. Denies SOB and CP. VSS. Pt afebrile. Review of Systems 10 point ROS is negative except as stated in the HPI Past Medical History Past Medical History: Deep Vein Thrombosis (DVT), Hypertension, Osteoarthritis (OA) Additional Past Medical History / Comment(s): kidney stones, hx. of DVT behind left knee developed while still in hospital after last surg.(left hip in February), just placed on BP med recently History of Any Multi-Drug Resistant Organisms: None Reported Past Surgical History: Joint Replacement Additional Past Surgical History / Comment(s): All teeth removed. left hip replaced in February 2023, TRH 08/18/23 Past Anesthesia/Blood Transfusion Reactions: No Reported Reaction Additional Past Anesthesia/Blood Transfusion Reaction / Comm: States has never had general anesthesia. Past Psychological History: No Psychological Hx Reported Smoking Status: Former smoker Past Alcohol Use History: Occasional Additional Past Alcohol Use History / Comment(s): Quit smoking daily 2 yrs ago, then smoked smoked on and off, then quit for good 6 months ago. 1-2 alcoholic drinks couple days per week Past Drug Use History: None Reported - Past Family History Mother Family Medical History: No Reported History Medications and Allergies Home Medications Medication Instructions Recorded Confirmed Type oxyCODONE HCL/ACETAMINOPHEN 1 tab PO Q6HR PRN 7 Days #28 tab 03/03/23 08/18/23 Rx [Percocet 5-325 mg] Aspirin 81 mg PO DAILY 08/14/23 08/18/23 History Cyclobenzaprine [Flexeril] 5 mg PO DIRECTED PRN 08/14/23 08/18/23 History amLODIPine [Norvasc] 5 mg PO DAILY 08/14/23 08/18/23 History Docusate [Colace] 100 mg PO BID #60 capsule 08/18/23 Rx Omeprazole 40 mg PO DAILY 30 Days #30 cap 08/18/23 Rx Rivaroxaban [Xarelto] 10 mg PO DAILY 35 Days #35 tab 08/18/23 Rx oxyCODONE-APAP 10-325MG [Percocet 1 tab PO Q4-6H PRN 7 Days #40 tab 08/18/23 Rx 10-325 mg] Allergies Allergy/AdvReac Type Severity Reaction Status Date / Time shellfish derived [Shrimp] Allergy Itching Verified 08/18/23 08:35 Physical Exam Vitals: Vital Signs Temp Pulse Pulse Pulse Resp BP BP 08/18/23 19:48 97.7 F 85 16 115/64 08/18/23 19:42 97.7 F 85 16 115/64 08/18/23 15:58 98.2 F 90 16 101/68 08/18/23 15:44 76 97/60 08/18/23 15:28 86 96/58 08/18/23 15:14 82 98/63 08/18/23 14:58 93 97/63 08/18/23 14:45 92 102/67 08/18/23 14:28 96 106/67 08/18/23 14:14 98 103/74 08/18/23 13:30 84 14 99/62 08/18/23 13:15 97 14 95/61 08/18/23 13:00 89 14 105/65 08/18/23 12:45 80 14 101/63 08/18/23 12:30 89 12 108/65 08/18/23 12:15 98 12 111/71 08/18/23 12:00 97 16 111/73 08/18/23 11:46 97.7 F 120 H 20 122/75 08/18/23 09:36 16 08/18/23 08:46 97.8 F 90 16 BP Pulse Ox 08/18/23 19:48 97 08/18/23 19:42 97 08/18/23 15:58 08/18/23 15:44 08/18/23 15:28 08/18/23 15:14 08/18/23 14:58 08/18/23 14:45 08/18/23 14:28 08/18/23 14:14 08/18/23 13:30 95 08/18/23 13:15 95 08/18/23 13:00 95 08/18/23 12:45 95 08/18/23 12:30 94 L 08/18/23 12:15 94 L 08/18/23 12:00 94 L 08/18/23 11:46 96 08/18/23 09:36 128/84 95 08/18/23 08:46 140/88 95 Intake and Output 08/18/23 08/18/23 08/18/23 06:59 14:59 22:59 Intake Total 1350 Output Total 250 80 Balance 1100 -80 Intake: IV 1350 Output: Drainage 80 Right Hip 80 Estimated Blood Loss 250 Other: Weight 80.2 kg - Constitutional General appearance: no acute distress - EENT Eyes: anicteric sclerae, EOMI ENT: hearing grossly normal - Respiratory Respiratory: bilateral: CTA - Cardiovascular Rhythm: regular Heart sounds: normal: S1, S2 Abnormal Heart Sounds: no systolic murmur, no diastolic murmur, no rub, no S3 Gallop, no S4 Gallop, no click, no other leg Peripheral Edema: left: None - Gastrointestinal General gastrointestinal: soft, no tenderness - Integumentary Integumentary: no cyanotic - Neurologic Neurologic: CNII-XII intact - Musculoskeletal decreased ROM right hip, surgical drain right lateral hip with bloody drainage - Psychiatric Psychiatric: A&O x's 3, appropriate affect, intact judgment & insight Results Comments: hip xray reviewed Assessment and Plan (1) Arthropathy of right hip Current Visit: Yes Status: Acute Priority: High Code(s): M16.11 - UNILATERAL PRIMARY OSTEOARTHRITIS, RIGHT HIP SNOMED Code(s): 74043444262167437 (2) History of DVT (deep vein thrombosis) Current Visit: Yes Status: Acute Priority: High Code(s): Z86.718 - PERSONAL HISTORY OF OTHER VENOUS THROMBOSIS AND EMBOLISM SNOMED Code(s): 027099940 Plan: Right total hip arthroplasty: -S/p right hip replacement 08/18. -Defer management to ortho team History LLE DVT: -Hx LLE DVT s/p left hip replacement in 02/2023. Patient was anticoagulated for 3 months s/p DVT. -Xarelto 10mg prophylactic dose started -Recommend continuation of anticoagulation for 35 days post-op attests: I seen and examined patient, performed H&P, developed impression and plan of care. Discussed with dictator. Agree with documentation, dictated as a scribe
[2023-08-18] MEDS: SENNOSIDES-DOCUSATE SODIUM 1 EACH TAB PO SCH (22:02)
[2023-08-19] MEDS: HYDROmorphone 0.5 MG/0.5 ML SYRINGE IVP PRN ×4 (00:16→19:37)
[2023-08-19] MEDS: LACTATED RINGERS 1,000 ML IV SCH ×2 (00:16→16:43)
[2023-08-19] MEDS: oxyCODONE-APAP 10-325MG 1 EACH TAB PO PRN ×5 (01:57→21:07)
[2023-08-19] MEDS: RIVAROXABAN 10 MG TAB PO SCH (08:14)
--- NOTE | 2023-08-19 08:36 | P.PN ---
Subjective Progress Note Date: 08/19/23 Patient is doing well this morning he does have some pain in his right hip. He states it is getting back into bed he felt a pop and had a slight increase in pain but is otherwise without complaints. He is able to walk several times. He denies chest pain or shortness of breath. He states that his recovery on this hip replacement has already been easier than his other side. Objective - Vital Signs Vital signs: Vital Signs Temp 98.0 F 08/19/23 06:58 Pulse 75 08/19/23 06:58 Resp 18 08/19/23 06:58 BP 108/72 08/19/23 06:58 Pulse Ox 96 08/19/23 06:58 FiO2 Intake & Output 08/18/23 08/19/23 08/19/23 18:59 06:59 18:59 Intake Total 1350 Output Total 250 80 50 Balance 1100 -80 -50 Weight 80.2 kg Intake: IV 1350 Output: Drainage 80 50 Right Hip 80 50 Estimated Blood Loss 250 Other: # Voids 2 - Exam The patient is resting comfortably in his bed. He is alert and able to answer questions. A focused exam of the right lower extremity was conducted. On inspection there are clean-appearing dressings over his incision and drain site. His Hemovac drain site was removed without difficulty. His thigh and calf are soft and nontender. He has minimal pain with passive range of motion of the hip. Femoral nerve function is intact. Distally he is able to plantarflex and dorsiflex his ankle and his toes. Assessment and Plan Assessment: Postoperative day #1 status post right direct anterior total hip replacement for avascular necrosis History of DVT Plan: 1. Weight-bear as tolerated right lower extremity, up with assistance and a walker 2. DVT prophylaxis with Xarelto 10 mg x 35 days, appreciate consult from Hematology 3. Internal medicine for preoperative medical management 4. Hemovac drain pulled this morning, leave dressing in place unless it becomes saturated and then please notify M.D. 5. Physical therapy for gait training and mobilization 6. Dispo: Given the patient's baseline anxiety and history of DVT as well as concerns for pain control we'll plan on keeping him for another night. I will reevaluate tomorrow and will likely plan for discharge home if he is doing well that time.
[2023-08-19 08:47] LABS: Basophils % (A) 0 %; Eosinophils % (A) 0 %; HCT 39.5 % (39.0-53.0); HGB 12.8 gm/dL (13.0-17.5); Lymphocytes # (A) 1.6 k/uL (1.0-4.8); Lymphocytes % (A) 10 %; MCHC 32.4 g/dL (31.0-37.0); MCV 86.6 fL (80.0-100.0); Mean Platelet Volume 8.2; Monocytes % (A) 6 %; Neutrophils # (A) 14.5 k/uL (1.3-7.7); Neutrophils % (A) 84 %; Platelet Count 289 k/uL (150-450); RBC 4.56 m/uL (4.30-5.90); RDW 14.2 % (11.5-15.5); WBC 17.2 k/uL (3.8-10.6)
--- NOTE | 2023-08-19 13:13 | P.CONS ---
History of Present Illness - Reason for Consult Consult date: 08/19/23 Medical management - History of Present Illness History of present illness; patient is a 43-year-old gentleman with past medical history significant for bilateral hip avascular necrosis, history of DVT who presented to the hospital for elective right hip total arthroplasty. Patient was following up outpatient with orthopedics for worsening right hip pain. Patient underwent left hip replacement in the past, post op course was complicated by left extremity DVT. Patient tried nonsurgical treatment failed, patient was scheduled for right total hip arthroplasty on 08/18. Post operatively internal medicine team was consulted for medical management REVIEW OF SYSTEMS: CONSTITUTIONAL: No fever, no malaise, no fatigue. HEENT: No recent visual problems or hearing problems. Denied any sore throat. CARDIOVASCULAR: No chest pain, orthopnea, PND, no palpitations, no syncope. PULMONARY: No shortness of breath, no cough, no hemoptysis. GASTROINTESTINAL: No diarrhea, no nausea, no vomiting, no abdominal pain. NEUROLOGICAL: No headaches, no weakness, no numbness. HEMATOLOGICAL: Denies any bleeding or petechiae. GENITOURINARY: Denies any burning micturition, frequency, or urgency. MUSCULOSKELETAL/RHEUMATOLOGICAL: Complaining of right hip pain ENDOCRINE: Denies any polyuria or polydipsia. The rest of the 14-point review of systems is negative. PHYSICAL EXAMINATION: GENERAL: The patient is alert and oriented x3, not in any acute distress. Well developed, well nourished. HEENT: Pupils are round and equally reacting to light. EOMI. No scleral icterus. No conjunctival pallor. Normocephalic, atraumatic. No pharyngeal erythema. No thyromegaly. CARDIOVASCULAR: S1 and S2 present. No murmurs, rubs, or gallops. PULMONARY: Chest is clear to auscultation, no wheezing or crackles. ABDOMEN: Soft, nontender, nondistended, normoactive bowel sounds. No palpable organomegaly. MUSCULOSKELETAL: Right hip surgical incision seen EXTREMITIES: No cyanosis, clubbing, or pedal edema. NEUROLOGICAL: Gross neurological examination did not reveal any focal deficits. SKIN: No rashes. Assessment and plan Right hip avascular necrosis with collapse status post right total hip arthroplasty Prior left total hip replacement for avascular necrosis with collapse History of DVT Hypertension Monitor vital signs Monitor CBC Monitor CMP Status post right total hip arthroplasty Continue pain control per orthopedics Continue DVT prophylaxis per orthopedics Patient on Norvasc at home, hold blood pressure medication at this time as blood pressure normotensive Hematology oncology consulted for anti-coagulation recommendations post surgery, they recommended starting Xarelto 10 mg daily for 35 days Labs and medication were reviewed.. Continue same treatment. Continue with symptomatic treatment. Resume home medication. Monitor labs and vitals. DVT and GI prophylaxis. Further recommendations as per clinical course of the patient Dictation was produced using [employer] dictation software. please excuse any grammatical, word or spelling errors. Past Medical History Past Medical History: Deep Vein Thrombosis (DVT), Hypertension, Osteoarthritis (OA) Additional Past Medical History / Comment(s): kidney stones, hx. of DVT behind left knee developed while still in hospital after last surg.(left hip in February), just placed on BP med recently History of Any Multi-Drug Resistant Organisms: None Reported Past Surgical History: Joint Replacement Additional Past Surgical History / Comment(s): All teeth removed. left hip replaced in February 2023, TRH 08/18/23 Past Anesthesia/Blood Transfusion Reactions: No Reported Reaction Additional Past Anesthesia/Blood Transfusion Reaction / Comm: States has never had general anesthesia. Past Psychological History: No Psychological Hx Reported Smoking Status: Former smoker Past Alcohol Use History: Occasional Additional Past Alcohol Use History / Comment(s): Quit smoking daily 2 yrs ago, then smoked smoked on and off, then quit for good 6 months ago. 1-2 alcoholic drinks couple days per week Past Drug Use History: None Reported - Past Family History Mother Family Medical History: No Reported History Medications and Allergies Home Medications Medication Instructions Recorded Confirmed Type oxyCODONE HCL/ACETAMINOPHEN 1 tab PO Q6HR PRN 7 Days #28 tab 03/03/23 08/18/23 Rx [Percocet 5-325 mg] Aspirin 81 mg PO DAILY 08/14/23 08/18/23 History Cyclobenzaprine [Flexeril] 5 mg PO DIRECTED PRN 08/14/23 08/18/23 History amLODIPine [Norvasc] 5 mg PO DAILY 08/14/23 08/18/23 History Docusate [Colace] 100 mg PO BID #60 capsule 08/18/23 Rx Omeprazole 40 mg PO DAILY 30 Days #30 cap 08/18/23 Rx Rivaroxaban [Xarelto] 10 mg PO DAILY 35 Days #35 tab 08/18/23 Rx oxyCODONE-APAP 10-325MG [Percocet 1 tab PO Q4-6H PRN 7 Days #40 tab 08/18/23 Rx 10-325 mg] Allergies Allergy/AdvReac Type Severity Reaction Status Date / Time shellfish derived [Shrimp] Allergy Itching Verified 08/18/23 08:35 Physical Exam Vitals: Vital Signs Temp Pulse Pulse Resp BP BP Pulse Ox 08/19/23 06:58 98.0 F 75 18 108/72 96 08/19/23 01:34 98.7 F 96 19 128/82 94 L 08/18/23 20:00 97.7 F 85 16 115/64 97 08/18/23 19:48 97.7 F 85 16 115/64 97 08/18/23 19:42 97.7 F 85 16 115/64 97 08/18/23 15:58 98.2 F 90 16 101/68 08/18/23 15:44 76 97/60 08/18/23 15:28 86 96/58 08/18/23 15:14 82 98/63 08/18/23 14:58 93 97/63 08/18/23 14:45 92 102/67 08/18/23 14:28 96 106/67 08/18/23 14:14 98 103/74 08/18/23 13:30 84 14 99/62 95 08/18/23 13:15 97 14 95/61 95 08/18/23 13:00 89 14 105/65 95 08/18/23 12:45 80 14 101/63 95 08/18/23 12:30 89 12 108/65 94 L 08/18/23 12:15 98 12 111/71 94 L 08/18/23 12:00 97 16 111/73 94 L 08/18/23 11:46 97.7 F 120 H 20 122/75 96 Intake and Output 08/18/23 08/19/23 08/19/23 22:59 06:59 14:59 Output Total 80 50 Balance -80 -50 Output: Drainage 80 50 Right Hip 80 50 Other: # Voids 1 2 Results CBC & Chem 7: 08/19/23 07:32 Labs: Abnormal Lab Results - Last 24 Hours (Table) 08/19/23 Range/Units 07:32 WBC 17.2 H (3.8-10.6) k/uL Hgb 12.8 L (13.0-17.5) gm/dL Neutrophils # 14.5 H (1.3-7.7) k/uL
[2023-08-19] MEDS: SENNOSIDES-DOCUSATE SODIUM 1 EACH TAB PO SCH (21:05)
[2023-08-20] MEDS: oxyCODONE-APAP 10-325MG 1 EACH TAB PO PRN ×2 (04:30→08:11)
--- NOTE | 2023-08-20 07:49 | P.PN ---
Subjective Progress Note Date: 08/20/23 Patient is doing well as morning. His pain is controlled. He has no complaints. Objective - Vital Signs Vital signs: Vital Signs Temp 98.1 F 08/20/23 01:06 Pulse 85 08/20/23 01:06 Resp 19 08/20/23 01:06 BP 124/73 08/20/23 01:06 Pulse Ox 97 08/20/23 01:06 FiO2 Intake & Output 08/19/23 08/20/23 08/20/23 18:59 06:59 18:59 Output Total 50 Balance -50 Output: Drainage 50 Right Hip 50 Other: # Voids 3 2 - Exam Patient is sitting up in a chair. He is comfortable. On inspection of the right hip there is a clean dressing over the incision and drain sponge over the drain site. His thigh is soft and minimally swollen. Femoral nerve function is intact. Distally he is able to actively plantarflex and dorsiflex his ankles and toes. - Labs CBC & Chem 7: 08/19/23 07:32 Labs: Abnormal Lab Results - Last 24 Hours (Table) 08/19/23 Range/Units 07:32 WBC 17.2 H (3.8-10.6) k/uL Hgb 12.8 L (13.0-17.5) gm/dL Neutrophils # 14.5 H (1.3-7.7) k/uL Assessment and Plan Assessment: Postoperative day #2 status post right direct anterior total hip replacement for avascular necrosis, doing well History of DVT Plan: Continue treatment as outlined yesterday. The patient is receiving is receiving Xarelto for DVT prophlaxis due to his history of having a DVT after his cont ralateral hip replacement. The patient is doing well this morning and we'll plan on discharging home later today.
--- NOTE | 2023-08-20 07:51 | P.DS ---
Providers Date of admission: 08/18/2023 Attending physician: Curry Xiao Consults: 08/18/23 11:55 Consult Physician Routine Consulting Provider: Benson Westfall Consult Reason/Comments: medical management Do you want consulting provider notified?: Yes 08/18/23 12:07 Consult Physician Routine Consulting Provider: Ham Douglas Consult Reason/Comments: hx DVT following [facility] Do you want consulting provider notified?: Yes Primary care physician: Stated None Hospital Course: The patient is a very pleasant 43-year-old male who was admitted on 08/18/2023 for an elective right hip replacement for avascular necrosis. Following a complicated surgery was transferred to the orthopedic floor. He received 2 doses of postoperative antibiotics. He was transitioned from IV to oral pain medications. He was seen both by hematology and internal medicine for perioperative medical management and management of his history of DVT. He worked with physical therapy and did reasonably well. His drain was pulled on postoperative day #1. He was comfortable on postoperative day #2 and was cleared for discharge home. Plan - Discharge Summary Discharge Rx Participant: Yes New Discharge Prescriptions: New Docusate [Colace] 100 mg PO BID #60 capsule Omeprazole 40 mg PO DAILY 30 Days #30 cap oxyCODONE-APAP 10-325MG [Percocet 10-325 mg] 1 tab PO Q4-6H PRN 7 Days #40 tab PRN Reason: Pain Rivaroxaban [Xarelto] 10 mg PO DAILY 35 Days #35 tab No Action Aspirin 81 mg PO DAILY Cyclobenzaprine [Flexeril] 5 mg PO DIRECTED PRN PRN Reason: Muscle Spasm oxyCODONE HCL/ACETAMINOPHEN [Percocet 5-325 mg] 1 tab PO Q6HR PRN 7 Days #28 tab PRN Reason: Pain amLODIPine [Norvasc] 5 mg PO DAILY Discharge Medication List oxyCODONE HCL/ACETAMINOPHEN [Percocet 5-325 mg] 1 tab PO Q6HR PRN 7 Days #28 tab 03/03/23 [Rx] Aspirin 81 mg PO DAILY 08/14/23 [History] Cyclobenzaprine [Flexeril] 5 mg PO DIRECTED PRN 08/14/23 [History] amLODIPine [Norvasc] 5 mg PO DAILY 08/14/23 [History] Docusate [Colace] 100 mg PO BID #60 capsule 08/18/23 [Rx] Omeprazole 40 mg PO DAILY 30 Days #30 cap 08/18/23 [Rx] Rivaroxaban [Xarelto] 10 mg PO DAILY 35 Days #35 tab 08/18/23 [Rx] oxyCODONE-APAP 10-325MG [Percocet 10-325 mg] 1 tab PO Q4-6H PRN 7 Days #40 tab 08/18/23 [Rx] Follow up Appointment(s)/Referral(s): [facility], [NON-STAFF] - 1-2 Days Curry Xiao MD [Medical Doctor] - 2 Weeks Activity/Diet/Wound Care/Special Instructions: Weight bear to tolerance on operative extremity with a walker. Keep operative dressing in place until follow-up in the office. Call the office if dressing becomes saturated or falls off. May shower over dressing. Take pain medications as needed. Take Xarelto as prescribed for blood clot prevention. Follow-up in the office in two weeks at [facility]. Call the office with any questions or concerns, Discharge Disposition: HOME WITH HOME HEALTH SERVICES
[2023-08-20] MEDS: RIVAROXABAN 10 MG TAB PO SCH (08:11)
[2023-08-20 08:45] VITALS: BP 122/80; PULSE 83; RESP 16; TEMP 98.7
--- NOTE | 2023-08-20 12:28 | P.PN ---
Subjective Progress Note Date: 08/20/23 patient is a 43-year-old gentleman with past medical history significant for bilateral hip avascular necrosis, history of DVT who presented to the hospital for elective right hip total arthroplasty. Patient was following up outpatient with orthopedics for worsening right hip pain. Patient underwent left hip replacement in the past, post op course was complicated by left extremity DVT. Patient tried nonsurgical treatment failed, patient was scheduled for right total hip arthroplasty on 08/18. Post operatively internal medicine team was consulted for medical management 08/20. Patient seen and examined. Blood pressure has improved, denies any lightheadedness or dizziness. Vital signs stable REVIEW OF SYSTEMS: CONSTITUTIONAL: No fever, no malaise,. CARDIOVASCULAR: No chest pain, no palpitations, no syncope. PULMONARY: No shortness of breath, no cough, GASTROINTESTINAL: No diarrhea, no nausea, no vomiting, no abdominal pain. NEUROLOGICAL: No headaches, no weakness, PHYSICAL EXAMINATION: GENERAL: The patient is alert and oriented x3, not in any acute distress. Well developed, well nourished. HEENT: Pupils are round and equally reacting to light. EOMI. No scleral icterus. No conjunctival pallor. Normocephalic, atraumatic. No pharyngeal erythema. No thyromegaly. CARDIOVASCULAR: S1 and S2 present. No murmurs, rubs, or gallops. PULMONARY: Chest is clear to auscultation, no wheezing or crackles. ABDOMEN: Soft, nontender, nondistended, normoactive bowel sounds. No palpable organomegaly. MUSCULOSKELETAL: No joint swelling or deformity. EXTREMITIES: No cyanosis, clubbing, or pedal edema. NEUROLOGICAL: Gross neurological examination did not reveal any focal deficits. SKIN: No rashes. Assessment and plan Right hip avascular necrosis with collapse status post right total hip arthroplasty Prior left total hip replacement for avascular necrosis with collapse History of DVT Hypertension Monitor vital signs Monitor CBC Monitor CMP Status post right total hip arthroplasty Continue pain control per orthopedics Continue DVT prophylaxis per orthopedics Resume [facility] Hematology oncology consulted for anti-coagulation recommendations post surgery, they recommended starting Xarelto 10 mg daily for 35 days Labs and medication were reviewed.. Continue same treatment. Continue with symptomatic treatment. Resume home medication. Monitor labs and vitals. DVT and GI prophylaxis. Further recommendations as per clinical course of the patient Dictation was produced using [employer] software. please excuse any grammatical, word or spelling errors. Objective - Vital Signs Vital signs: Vital Signs Temp 98.7 F 08/20/23 06:57 Pulse 83 08/20/23 06:57 Resp 16 08/20/23 06:57 BP 122/80 08/20/23 06:57 Pulse Ox 95 08/20/23 06:57 FiO2 Intake & Output 08/19/23 08/20/23 08/20/23 18:59 06:59 18:59 Output Total 50 Balance -50 Output: Drainage 50 Right Hip 50 Other: # Voids 3 2 - Labs CBC & Chem 7: 08/19/23 07:32
== END 2023-08-20 12:27 | disposition home health service (06) ==
LOC: OR 08:10 → 4SSUR 11:46 → OR 08-20 12:27
PROVIDERS: ATTEND Orthopaedic Surgery
DX: M16.11 Unilateral primary osteoarthritis, right hip (principal); I10 Essential (primary) hypertension; Z86.73 Personal history of transient ischemic attack (TIA), and cerebral infarction without residual deficits; Z86.718 Personal history of other venous thrombosis and embolism; Z79.899 Other long term (current) drug therapy; Z87.442 Personal history of urinary calculi; Z87.891 Personal history of nicotine dependence; Z79.01 Long term (current) use of anticoagulants
CPT/HCPCS: 97162; 85025; 73501; 27130; 64450; J2250; J1100; J0690 ×2; J2405; J3010; J3490; J1885; J1170 ×2; 64447

== ENCOUNTER 2024-07-21 09:26 | Inpatient (IN) | payer MEDICAID, OTHER ==
--- NOTE | 2024-07-21 09:32 | ED ---
General Adult HPI - General Stated complaint: SI Time Seen by Provider: 07/21/24 09:29 Source: patient, EMS, RN notes reviewed Mode of arrival: EMS Limitations: no limitations - History of Present Illness Initial comments: Patient is a 44-year-old male presenting to the emergency department for hanging. Patient was found by prior to arrival. Patient was on a weightlifting bench with a T-shirt around his neck and leaning forward. Patient was blue and not breathing. Patient was immediately cut down and immediately started breathing. Patient is unclear if he ever stopped breathing or lost consciousness. Patient is upset and somewhat limited in providing history. Patient admits to drinking alcohol last night. Patient admits to smoking marijuana last night. No homicidal thoughts. No hallucinations. Patient denies any dyspnea or any pain at this time. No neck pain. - Related Data Home Medications Medication Instructions Recorded Confirmed Aspirin 81 mg PO DAILY 08/14/23 08/18/23 Cyclobenzaprine [Flexeril] 5 mg PO DIRECTED PRN 08/14/23 08/18/23 amLODIPine [Norvasc] 5 mg PO DAILY 08/14/23 08/18/23 Previous Rx's Medication Instructions Recorded oxyCODONE HCL/ACETAMINOPHEN 1 tab PO Q6HR PRN 7 Days #28 tab 03/03/23 [Percocet 5-325 mg] Docusate [Colace] 100 mg PO BID #60 capsule 08/18/23 Omeprazole 40 mg PO DAILY 30 Days #30 cap 08/18/23 Rivaroxaban [Xarelto] 10 mg PO DAILY 35 Days #35 tab 08/18/23 oxyCODONE-APAP 10-325MG [Percocet 1 tab PO Q4-6H PRN 7 Days #40 tab 08/18/23 10-325 mg] Allergies Allergy/AdvReac Type Severity Reaction Status Date / Time shellfish derived [Shrimp] Allergy Itching Verified 08/18/23 08:35 Review of Systems ROS Statement: Those systems with pertinent positive or pertinent negative responses have been documented in the HPI. ROS Other: All systems not noted in ROS Statement are negative. Constitutional: Denies: fever Eyes: Denies: eye pain ENT: Denies: ear pain Respiratory: Denies: cough, dyspnea Cardiovascular: Denies: chest pain Endocrine: Denies: fatigue Gastrointestinal: Denies: abdominal pain Neurological: Denies: headache Psychiatric: Reports: depression, suicidal thoughts. Denies: auditory hallucinations, visual hallucinations, homicidal thoughts Past Medical History Past Medical History: Deep Vein Thrombosis (DVT), Hypertension, Osteoarthritis (OA) Additional Past Medical History / Comment(s): kidney stones, hx. of DVT behind left knee developed while still in hospital after last surg.(left hip in February), just placed on BP med recently History of Any Multi-Drug Resistant Organisms: None Reported Past Surgical History: Joint Replacement Additional Past Surgical History / Comment(s): All teeth removed. left hip replaced in February 2023, TRH 08/18/23 Past Anesthesia/Blood Transfusion Reactions: No Reported Reaction Additional Past Anesthesia/Blood Transfusion Reaction / Comment(s): States has never had general anesthesia. Past Psychological History: No Psychological Hx Reported Smoking Status: Former smoker Past Alcohol Use History: Occasional Additional Past Alcohol Use History / Comment(s): Quit smoking daily 2 yrs ago, then smoked smoked on and off, then quit for good 6 months ago. 1-2 alcoholic drinks couple days per week Past Drug Use History: None Reported - Past Family History Mother Family Medical History: No Reported History General Exam Limitations: no limitations General appearance: alert, in no apparent distress Head exam: Present: atraumatic, normocephalic Eye exam: Present: normal appearance, PERRL, EOMI ENT exam: Present: normal oropharynx Neck exam: Present: normal inspection, other (C-collar is present). Absent: tenderness Respiratory exam: Present: normal lung sounds bilaterally Cardiovascular Exam: Present: regular rate, normal rhythm GI/Abdominal exam: Present: soft. Absent: tenderness Extremities exam: Present: normal inspection Back exam: Present: normal inspection. Absent: tenderness, vertebral tenderness Neurological exam: Present: alert, oriented X3, CN II-XII intact. Absent: motor sensory deficit Expanded Neurological exam: Present: protecting the airway Patient oriented to: Present: person, place, time Speech: Present: fluid speech Cranial nerves: EOM's Intact: Normal Motor strength exam: RUE: 5, LUE: 5, RLE: 5, LLE: 5 Eye Response: (4) open spontaneously Motor Response: (6) obeys commands Verbal Response: (5) oriented Psychiatric exam: Present: flat affect Skin exam: Present: normal color Course Vital Signs 07/21/24 09:27 Temperature 98.0 F Pulse Rate 118 H Respiratory 18 Rate Blood Pressure 133/105 O2 Sat by Pulse 97 Oximetry - Reevaluation(s) Reevaluation #1: 07/21/24 11:21 Patient reevaluated. Cervical spine cleared. Patient medically clear for mental health evaluation EKG Findings - EKG Results: EKG: interpreted by ERMD, sinus rhythm, normal axis, normal QRS, normal ST/T Medical Decision Making - Medical Decision Making Was pt. sent in by a medical professional or institution (, PA, CONTRACT CLERK, urgent care, hospital, or snf...) When possible be specific @ -No Did you speak to anyone other than the patient for history (EMS, parent, family, police, friend...)? What history was obtained from this source @ -EMS and police officers help provide history as patient is reluctant Did you review nursing and triage notes (agree or disagree)? Why? @ -I reviewed and agree with nursing and triage notes Were old charts reviewed (outside hosp., previous admission, EMS record, old EKG, old radiological studies, urgent care reports/EKG's, snf records)? Report findings @ -No old charts were reviewed Differential Diagnosis (chest pain, altered mental status, abdominal pain women, abdominal pain men, vaginal bleeding, weakness, fever, dyspnea, syncope, headache, dizziness, GI bleed, back pain, seizure, CVA, palpatations, mental health, musculoskeletal)? @ -Differential Mental Health Depression, anxiety, bipolar, psychosis, schizophrenia, borderline personality, situational depression, adjustment disorder, behavioral disorder, brain tumor, malingering, substance abuse, encephalopathy, medication reaction, dementia, hypothyroidism, degenerative neurologic disorder, lupus.... This is not meant to be all-inclusive list differential Dyspnea: Coronary syndrome, arrhythmia, tamponade, asthma, COPD, pulmonary embolism, pneumonia, pneumothorax, pulmonary effusion, anaphylaxis, diabetic ketoacidosis, flailed chest, pulmonary contusion, diaphragmatic rupture, anemia, neuromuscular, this is not meant to be an all-inclusive list. EKG interpreted by me (3pts min.). @ -As above X-rays interpreted by me (1pt min.). @ -Pelvis x-ray showed no acute process CT interpreted by me (1pt min.). @ -Scan brain and cervical spine without acute abnormality U/S interpreted by me (1pt. min.). @ -None done What testing was considered but not performed or refused? (CT, X-rays, U/S, labs)? Why? @ -None What meds were considered but not given or refused? Why? @ -None Did you discuss the management of the patient with other professionals (professionals i.e. , PA, CONTRACT CLERK, lab, RT, psych nurse, group social worker, rn lactation, teacher, photographic intelligence officer, bottle caser)? Give summary @ -No Was smoking cessation discussed for >3mins.? @ -No Was critical care preformed (if so, how long)? @ -No Were there social determinants of health that impacted care today? How? (Homelessness, low income, unemployed, alcoholism, drug addiction, transportation, low edu. Level, literacy, decrease access to med. care, retirement, rehab)? @ -No Was there de-escalation of care discussed even if they declined (Discuss DNR or withdrawal of care, Hospice)? DNR status @ -No What co-morbidities impacted this encounter? (DM, HTN, Smoking, COPD, CAD, Cancer, CVA, ARF, Chemo, Hep., AIDS, mental health diagnosis, sleep apnea, morbid obesity)? @ -Depression Was patient admitted / discharged? Hospital course, mention meds given and route, prescriptions, significant lab abnormalities, going to OR and other pertinent info. @ -Patient presents with hanging. Patient medically cleared for mental health evaluation. Positive clinical certificate completed Undiagnosed new problem with uncertain prognosis? @ -No Drug Therapy requiring intensive monitoring for toxicity (Heparin, Nitro, Insulin, Cardizem)? @ -No Were any procedures done? @ -No Diagnosis/symptom? @ depression hanging Acute, or Chronic, or Acute on Chronic? @ -Acute, acute Uncomplicated (without systemic symptoms) or Complicated (systemic symptoms)? @ -Default Side effects of treatment? @ -No Exacerbation, Progression, or Severe Exacerbation? @ -No Poses a threat to life or bodily function? How? (Chest pain, USA, ID, pneumonia, PE, COPD, DKA, ARF, appy, cholecystitis, CVA, Diverticulitis, Homicidal, Suicidal, threat to staff... and all critical care pts) @ -Life - Lab Data Result diagrams: 07/21/24 09:49 07/21/24 10:48 Lab Results 07/21/24 07/21/24 07/21/24 Range/Units 09:49 09:49 10:48 WBC 8.2 (3.8-10.6) k/uL RBC 5.29 (4.30-5.90) m/uL Hgb 16.0 (13.0-17.5) gm/dL Hct 47.3 (39.0-53.0) % MCV 89.4 (80.0-100.0) fL MCH 30.3 (25.0-35.0) pg MCHC 33.9 (31.0-37.0) g/dL RDW 13.4 (11.5-15.5) % Plt Count 256 (150-450) k/uL MPV 8.3 Neutrophils % 68 % Lymphocytes % 25 % Monocytes % 4 % Eosinophils % 2 % Basophils % 0 % Neutrophils # 5.6 (1.3-7.7) k/uL Lymphocytes # 2.0 (1.0-4.8) k/uL Monocytes # 0.3 (0-1.0) k/uL Eosinophils # 0.2 (0-0.7) k/uL Basophils # 0.0 (0-0.2) k/uL PT 10.7 (10.0-12.5) sec INR 1.0 (<1.2) APTT 21.6 L (22.0-30.0) sec Sodium 137 (137-145) mmol/L Potassium 4.1 (3.5-5.1) mmol/L Chloride 107 (98-107) mmol/L Carbon Dioxide 21 L (22-30) mmol/L Anion Gap 9 mmol/L BUN 16 (9-20) mg/dL Creatinine 0.75 (0.66-1.25) mg/dL Est GFR (CKD-EPI)AfAm >90 (>60 ml/min/1.73 sqM) Est GFR (CKD-EPI)NonAf >90 (>60 ml/min/1.73 sqM) Glucose 109 H (74-99) mg/dL Calcium 9.3 (8.4-10.2) mg/dL Total Bilirubin 0.9 (0.2-1.3) mg/dL AST 27 (17-59) U/L ALT 39 (4-49) U/L Alkaline Phosphatase 64 (38-126) U/L Total Protein 6.8 (6.3-8.2) g/dL Albumin 4.5 (3.5-5.0) g/dL Urine Opiates Screen (NotDetected) Ur Oxycodone Screen (NotDetected) Urine Methadone Screen (NotDetected) Ur Barbiturates Screen (NotDetected) U Tricyclic Antidepress (NotDetected) Ur Phencyclidine Scrn (NotDetected) Ur Amphetamines Screen (NotDetected) U Methamphetamines Scrn (NotDetected) U Benzodiazepines Scrn (NotDetected) Urine Cocaine Screen (NotDetected) U Marijuana (THC) Screen (NotDetected) Serum Alcohol <10 mg/dL Blood Type Blood Type Recheck Bld Type Recheck Status Antibody Screen Spec Expiration Date 07/21/24 07/21/24 Range/Units 10:48 11:30 WBC (3.8-10.6) k/uL RBC (4.30-5.90) m/uL Hgb (13.0-17.5) gm/dL Hct (39.0-53.0) % MCV (80.0-100.0) fL MCH (25.0-35.0) pg MCHC (31.0-37.0) g/dL RDW (11.5-15.5) % Plt Count (150-450) k/uL MPV Neutrophils % % Lymphocytes % % Monocytes % % Eosinophils % % Basophils % % Neutrophils # (1.3-7.7) k/uL Lymphocytes # (1.0-4.8) k/uL Monocytes # (0-1.0) k/uL Eosinophils # (0-0.7) k/uL Basophils # (0-0.2) k/uL PT (10.0-12.5) sec INR (<1.2) APTT (22.0-30.0) sec Sodium (137-145) mmol/L Potassium (3.5-5.1) mmol/L Chloride (98-107) mmol/L Carbon Dioxide (22-30) mmol/L Anion Gap mmol/L BUN (9-20) mg/dL Creatinine (0.66-1.25) mg/dL Est GFR (CKD-EPI)AfAm (>60 ml/min/1.73 sqM) Est GFR (CKD-EPI)NonAf (>60 ml/min/1.73 sqM) Glucose (74-99) mg/dL Calcium (8.4-10.2) mg/dL Total Bilirubin (0.2-1.3) mg/dL AST (17-59) U/L ALT (4-49) U/L Alkaline Phosphatase (38-126) U/L Total Protein (6.3-8.2) g/dL Albumin (3.5-5.0) g/dL Urine Opiates Screen Not Detected (NotDetected) Ur Oxycodone Screen Not Detected (NotDetected) Urine Methadone Screen Not Detected (NotDetected) Ur Barbiturates Screen Not Detected (NotDetected) U Tricyclic Antidepress Not Detected (NotDetected) Ur Phencyclidine Scrn Not Detected (NotDetected) Ur Amphetamines Screen Not Detected (NotDetected) U Methamphetamines Scrn Not Detected (NotDetected) U Benzodiazepines Scrn Not Detected (NotDetected) Urine Cocaine Screen Not Detected (NotDetected) U Marijuana (THC) Screen Detected H (NotDetected) Serum Alcohol mg/dL Blood Type A Positive Blood Type Recheck A Pos Bld Type Recheck Status No Antibody Screen NEGATIVE Spec Expiration Date 07/24/20242347 Disposition Clinical Impression: Attempted suicide, Depression, Hanging Disposition: TRANSFER TO PSYCH HOSP/UNIT Is patient prescribed a controlled substance at d/c from ED?: No Referrals: None,Stated [Primary Care Provider] - 1-2 days Time of Disposition: 13:12
[2024-07-21 09:56] LABS: Basophils % (A) 0 %; Eosinophils # (A) 0.2 k/uL (0-0.7); Eosinophils % (A) 2 %; HCT 47.3 % (39.0-53.0); Lymphocytes % (A) 25 %; MCH 30.3 pg (25.0-35.0); MCHC 33.9 g/dL (31.0-37.0); MCV 89.4 fL (80.0-100.0); Mean Platelet Volume 8.3; Monocytes # (A) 0.3 k/uL (0-1.0); Monocytes % (A) 4 %; Neutrophils # (A) 5.6 k/uL (1.3-7.7); Neutrophils % (A) 68 %; Platelet Count 256 k/uL (150-450); RBC 5.29 m/uL (4.30-5.90); RDW 13.4 % (11.5-15.5); WBC 8.2 k/uL (3.8-10.6)
--- NOTE | 2024-07-21 10:13 | XR ---
EXAMINATION TYPE: XR pelvis AP view DATE OF EXAM: 07/21/2024 COMPARISON: 4 3 HISTORY: Trauma, pain TECHNIQUE: AP pelvis exam projection FINDINGS: Bilateral hip prostheses are present. No acute fracture evident. Symphysis pubis sacroiliac joints are normal. Normal bowel gas is present. IMPRESSION: 1. No acute posttraumatic changes AP pelvis [facility], , 07/21/2024 10:11 AM
--- NOTE | 2024-07-21 10:14 | XR ---
EXAMINATION TYPE: XR chest 1V portable DATE OF EXAM: 07/21/2024 COMPARISON: None INDICATION: Trauma TECHNIQUE: Single frontal view of the chest is obtained. FINDINGS: The heart size is normal. The pulmonary vasculature is normal. The lungs are clear. IMPRESSION: 1. No acute pulmonary process. [facility] [place], , 07/21/2024 10:12 AM
[2024-07-21 10:15] LABS: Partial Thromboplastin Time 21.6 sec (22.0-30.0); Prothrombin Time 10.7 sec (10.0-12.5)
--- NOTE | 2024-07-21 10:31 | CT ---
EXAMINATION TYPE: CT brain preethi wo con DATE OF EXAM: 07/21/2024 COMPARISON: None HISTORY: hanging CT DLP: 1327 mGycm, Automated exposure control for dose reduction was used. CONTRAST: Patient injected with 0 mL of Isovue 300. CT of the brain is performed utilizing 3 mm thick sections through the posterior fossa and 3 mm thick sections through the remaining calvarium. Study is performed within 24 hours of arrival to the hospital. No abnormal hyperdensity is present to suggest an acute intracranial hemorrhage. No mass lesion is evident. No acute infarcts are evident. Abdalla-white matter differentiation appears preserved. Ventricles and sulci are appropriate for the patient age. Paranasal sinuses and mastoid air cells within the sdves-nd-wote are clear. IMPRESSIONS: 1. No acute intracranial process. Follow-up MRI can be performed as clinically indicated. CT cervical spine. COMPARISON: None CT of the cervical spine is performed in the axial plane at 2 mm thick sections. Reconstructed image s in the coronal, and sagittal plane are reviewed on the computer. No acute fractures are evident. Vertebral body alignment is normal. Disc heights are preserved. Vertebral body heights are preserved. No spinal canal stenosis is evident. No neural foraminal stenosis is evident. Hyoid appears intact. Trachea and hypopharynx appear within normal limits. IMPRESSION: 1. No acute fractures evident. [facility], , 07/21/2024 10:29 AM
[2024-07-21 11:10] LABS: ALT 39 U/L (4-49); AST 27 U/L (17-59); African American GFR (CKD) >90 (>60 ml/min/1.73 sqM); Albumin 4.5 g/dL (3.5-5.0); Alcohol <10 mg/dL; Alkaline Phosphatase 64 U/L (38-126); Anion Gap 9 mmol/L; Blood Urea Nitrogen 16 mg/dL (9-20); Calcium 9.3 mg/dL (8.4-10.2); Carbon Dioxide 21 mmol/L (22-30); Chloride 107 mmol/L (98-107); Glucose 109 mg/dL (74-99); Non-African American GFR(CKD) >90 (>60 ml/min/1.73 sqM); Potassium 4.1 mmol/L (3.5-5.1); Sodium 137 mmol/L (137-145); Total Bilirubin 0.9 mg/dL (0.2-1.3); Total Protein 6.8 g/dL (6.3-8.2)
--- NOTE | 2024-07-21 11:10 | CT ---
EXAMINATION TYPE: CT angio neck DATE OF EXAM: 07/21/2024 HISTORY: hanging COMPARISON: None CT DLP: 1694 mGycm. Automated Exposure Control for Dose Reduction was Utilized. TECHNIQUE: CTA scan of the neck is performed with IV Contrast, patient injected with 100 mL of Isovu e 370, axial images are obtained, coronal and sagittal reformatted images are reviewed. Three-D recon structed images are created on an independent workstation and reviewed. Source images are reviewed. FINDINGS: Carotid/Vascular Structures: There is a 3 vessel arch. Common carotid arteries bifurcate into internal and external carotid arteries without significant [place] w limiting stenosis. Vertebral arteries are codominant. Internal carotid arteries and vertebral arteries are patent to the skull base. IMPRESSION: 1. No flow-limiting stenosis bilateral carotid bifurcations. 2. No acute posttraumatic changes NASCET criteria was used in interpretation of this exam? [facility], , 07/21/2024 11:08 AM
[2024-07-21 12:00] LABS: Amphetamine Screen,Urine Not Detected (NotDetected); Benzodiazepines Screen,Urine Not Detected (NotDetected); Cocaine Screen,Urine Not Detected (NotDetected); Opiate Screen,Urine Not Detected (NotDetected); Phencyclidine Screen,Urine Not Detected (NotDetected); Tricyclic Antidepressant,Urine Not Detected (NotDetected); Urn Cannabinoid Scrn Detected (NotDetected)
[2024-07-21 12:01] LABS: Barbiturate Screen,Urine Not Detected (NotDetected); Methadone Screen, Urine Not Detected (NotDetected); Oxycodone Screen, Urine Not Detected (NotDetected)
[2024-07-21] MEDS: ACETAMINOPHEN TAB 500 MG TAB PO STA (18:48)
[2024-07-21] MEDS ORDERED: haloperidoL 5 MG TAB PO PRN (20:01)
[2024-07-21] MEDS ORDERED: MAG HYDROX/AL HYDROX/SIMETH 355 ML BOTTLE PO PRN (20:01)
[2024-07-21] MEDS ORDERED: MAGNESIUM HYDROXIDE 2,400 MG/30 ML CUP PO PRN (20:01)
[2024-07-21] MEDS ORDERED: LORazepam 2 MG/ML INJ IM PRN (20:01)
[2024-07-21] MEDS ORDERED: IBUPROFEN 600 MG TAB PO PRN (20:01)
[2024-07-21] MEDS ORDERED: ACETAMINOPHEN TAB 325 MG TAB PO PRN (20:01)
[2024-07-21] MEDS ORDERED: HALOPERIDOL LACTATE 5 MG/ML 1 ML VIAL IM PRN (20:01)
[2024-07-21] MEDS: LORazepam 1 MG TAB PO PRN (21:11)
--- NOTE | 2024-07-22 04:55 | P.CONS ---
History of Present Illness - Reason for Consult Consult date: 07/21/24 - History of Present Illness The patient is a 44-year-old male with a PMH of hypertension and a history of DVT not on anticoagulation, who had presented to the emergency room with complaints of depression and suicidal ideation. The patient was admitted to the mental health unit where he was seen and evaluated. The patient reports that he has been struggling with thoughts of suicide for some time now. He denied any active complaints at the time of interview however. Denied experiencing chest discomfort, shortness breath, fever, chills, cough, nausea, vomiting, abdominal pain, diarrhea. He denied illicit substance, alcohol, or tobacco use. Laboratory evaluation was remarkable for urine toxicology positive for marijuana Review of systems: Pertinent positives and negatives as discussed in HPI, a complete review of systems was performed and all other systems are negative. Physical examination: General: non toxic, no distress, appears at stated age, normal weight Derm: no unusual rashes/lesions, no unusual ecchymoses, warm, dry Head: atraumatic, normocephalic, symmetric Eyes: EOMI, no lid lag, anicteric sclera ENT: Nose and ears atraumatic, no thrush, no pharyngeal erythema Neck: trachea midline, supple Mouth: no lip lesion, mucus membranes moist Cardiovascular: S1S2 reg, no murmur, no edema Lungs: CTA bilateral, no rhonchi, no rales , no accessory muscle use Abdominal: soft, nontender to palpation, no guarding Ext: no gross muscle atrophy, no contractures, Neuro: No gross focal neuro deficits noted Psych: Alert, oriented, appropriate affect Assessment: Marijuana abuse Chronic conditions: Hypertension Depression and suicidal ideation Imaging: None performed Data Review: Urine toxicology positive marijuana Plan: Advised on the importance of cessation from marijuana use Resume home medications Defer management of depression and suicidal ideation to the primary psychiatry service Thank you for allowing us to participate in the care of this patient. We will follow peripherally. Do not hesitate to contact us with questions. Someone can be reached from the [facility] hospitalist group at all hours of the day at [phone]. Past Medical History Past Medical History: Deep Vein Thrombosis (DVT), Hypertension, Osteoarthritis (OA) Additional Past Medical History / Comment(s): kidney stones, hx. of DVT behind left knee developed while still in hospital after last surg.(left hip in February), just placed on BP med recently History of Any Multi-Drug Resistant Organisms: None Reported Past Surgical History: Joint Replacement Additional Past Surgical History / Comment(s): All teeth removed. left hip replaced in February 2023, TRH 08/18/23 Past Anesthesia/Blood Transfusion Reactions: No Reported Reaction Additional Past Anesthesia/Blood Transfusion Reaction / Comm: States has never had general anesthesia. Past Psychological History: No Psychological Hx Reported Smoking Status: Former smoker Past Alcohol Use History: Occasional Additional Past Alcohol Use History / Comment(s): Quit smoking daily 2 yrs ago, then smoked smoked on and off, then quit for good 1 year ago ago. 1-2 alcoholic drinks couple days per week Past Drug Use History: None Reported - Past Family History Mother Family Medical History: Liver Disease Medications and Allergies Home Medications Medication Instructions Recorded Confirmed Type [id number] 1 - 2 tab PO Q4HR PRN 07/21/24 07/21/24 History [Excedrin] Ibuprofen [Motrin Ib] 200 - 800 mg PO Q6H PRN 07/21/24 07/21/24 History Multivit-Min/FA/Lycopen/Lutein 2 tab PO DAILY 07/21/24 07/21/24 History [Centrum Silver Tablet] Allergies Allergy/AdvReac Type Severity Reaction Status Date / Time shellfish derived [Shrimp] Allergy Itching Verified 07/21/24 14:36 tongue Physical Exam Vitals: Vital Signs Temp Pulse Pulse Resp BP BP Pulse Ox 07/21/24 21:18 98.6 F 84 16 141/84 98 07/21/24 20:30 80 18 137/76 95 07/21/24 15:55 90 18 142/92 98 07/21/24 09:27 98.0 F 118 H 18 133/105 97 Intake and Output 07/21/24 07/21/24 07/21/24 06:59 14:59 22:59 Other: Weight 77.111 kg 78.653 kg Results CBC & Chem 7: 07/21/24 09:49 07/21/24 10:48 Labs: Abnormal Lab Results - Last 24 Hours (Table) 07/21/24 07/21/24 07/21/24 Range/Units 09:49 10:48 11:30 APTT 21.6 L (22.0-30.0) sec Carbon Dioxide 21 L (22-30) mmol/L Glucose 109 H (74-99) mg/dL U Marijuana (THC) Screen Detected H (NotDetected)
[2024-07-22] MEDS: NICOTINE 14MG/24HR PATCH TRANSDERM SCH (09:12)
[2024-07-22 11:14] LABS: Appearance,Urine Clear (Clear); Bilirubin,Urine Negative (Negative); Blood,Urine Small (Negative); Calcium Oxalate Crystals,Urine Occasional /hpf; Color,Urine Yellow; Glucose,Urine (UA) Negative (Negative); Ketones,Urine Negative (Negative); Leukocyte Esterase,Urine Negative (Negative); Mucus,Urine Many /hpf; Nitrite,Urine Negative (Negative); Protein,Urine Trace (Negative); RBC,Urine 5 /hpf (0-5); Specific Gravity,Urine 1.023 (1.001-1.035); Squamous Epithelial Cell,Urine <1 /hpf (0-4); Urobilinogen,Urine <2.0 mg/dL (<2.0); WBC,Urine 2 /hpf (0-5)
--- NOTE | 2024-07-22 13:52 | P.HP ---
Psychiatric H&P - . H&P Date: 07/22/24 History & Physical: Allergies Allergy/AdvReac Type Severity Reaction Status Date / Time shellfish derived shrimp Allergy Itching Verified 07/21/24 14:36 tongue Vital Signs Temp 98.9 F 07/22/24 05:49 Pulse 75 07/22/24 05:49 Resp 15 07/22/24 05:49 BP 117/77 07/22/24 05:49 Pulse Ox 97 07/22/24 05:49 FiO2 Intake & Output 07/21/24 07/22/24 07/22/24 18:59 06:59 18:59 Weight 77.111 kg 78.653 kg Laboratory Last Values WBC 8.2 k/uL (3.8-10.6) 07/21/24 09:49 RBC 5.29 m/uL (4.30-5.90) 07/21/24 09:49 Hgb 16.0 gm/dL (13.0-17.5) 07/21/24 09:49 Hct 47.3 % (39.0-53.0) 07/21/24 09:49 MCV 89.4 fL (80.0-100.0) 07/21/24 09:49 MCH 30.3 pg (25.0-35.0) 07/21/24 09:49 MCHC 33.9 g/dL (31.0-37.0) 07/21/24 09:49 RDW 13.4 % (11.5-15.5) 07/21/24 09:49 Plt Count 256 k/uL (150-450) 07/21/24 09:49 MPV 8.3 07/21/24 09:49 Neutrophils % 68 % 07/21/24 09:49 Lymphocytes % 25 % 07/21/24 09:49 Monocytes % 4 % 07/21/24 09:49 Eosinophils % 2 % 07/21/24 09:49 Basophils % 0 % 07/21/24 09:49 Neutrophils # 5.6 k/uL (1.3-7.7) 07/21/24 09:49 Lymphocytes # 2.0 k/uL (1.0-4.8) 07/21/24 09:49 Monocytes # 0.3 k/uL (0-1.0) 07/21/24 09:49 Eosinophils # 0.2 k/uL (0-0.7) 07/21/24 09:49 Basophils # 0.0 k/uL (0-0.2) 07/21/24 09:49 PT 10.7 sec (10.0-12.5) 07/21/24 09:49 INR 1.0 (<1.2) 07/21/24 09:49 APTT 21.6 sec (22.0-30.0) L 07/21/24 09:49 Sodium 137 mmol/L (137-145) 07/21/24 10:48 Potassium 4.1 mmol/L (3.5-5.1) 07/21/24 10:48 Chloride 107 mmol/L (98-107) 07/21/24 10:48 Carbon Dioxide 21 mmol/L (22-30) L 07/21/24 10:48 Anion Gap 9 mmol/L 07/21/24 10:48 BUN 16 mg/dL (9-20) 07/21/24 10:48 Creatinine 0.75 mg/dL (0.66-1.25) 07/21/24 10:48 Est GFR (CKD-EPI)AfAm >90 (>60 ml/min/1.73 sqM) 07/21/24 10:48 Est GFR (CKD-EPI)NonAf >90 (>60 ml/min/1.73 sqM) 07/21/24 10:48 Glucose 109 mg/dL (74-99) H 07/21/24 10:48 Calcium 9.3 mg/dL (8.4-10.2) 07/21/24 10:48 Total Bilirubin 0.9 mg/dL (0.2-1.3) 07/21/24 10:48 AST 27 U/L (17-59) 07/21/24 10:48 ALT 39 U/L (4-49) 07/21/24 10:48 Alkaline Phosphatase 64 U/L (38-126) 07/21/24 10:48 Total Protein 6.8 g/dL (6.3-8.2) 07/21/24 10:48 Albumin 4.5 g/dL (3.5-5.0) 07/21/24 10:48 Urine Opiates Screen Not Detected (NotDetected) 07/21/24 11:30 Ur Oxycodone Screen Not Detected (NotDetected) 07/21/24 11:30 Urine Methadone Screen Not Detected (NotDetected) 07/21/24 11:30 Ur Barbiturates Screen Not Detected (NotDetected) 07/21/24 11:30 U Tricyclic Antidepress Not Detected (NotDetected) 07/21/24 11:30 Ur Phencyclidine Scrn Not Detected (NotDetected) 07/21/24 11:30 Ur Amphetamines Screen Not Detected (NotDetected) 07/21/24 11:30 U Methamphetamines Scrn Not Detected (NotDetected) 07/21/24 11:30 U Benzodiazepines Scrn Not Detected (NotDetected) 07/21/24 11:30 Urine Cocaine Screen Not Detected (NotDetected) 07/21/24 11:30 U Marijuana (THC) Screen Detected (NotDetected) H 07/21/24 11:30 Serum Alcohol <10 mg/dL 07/21/24 10:48 SARS-CoV-2 (PCR) Not Detected (Not Detectd) 07/21/24 12:00 Blood Type A Positive 07/21/24 10:48 Blood Type Recheck A Pos 07/21/24 10:48 Bld Type Recheck Status No 07/21/24 10:48 Antibody Screen NEGATIVE 07/21/24 10:48 Spec Expiration Date 07/24/2024 - 234707/21/24 10:48 07/22/24 08:57 IDENTIFYING DATA: Patient is a 44 year old male. Lives with fiance. HPI: Patient presented to the hospital on 07/21. As per EPS note, "Patient presented to ED by EMS for attempted hanging. Patient assess from [id number]. Patient states that he was feeling overwhelmed and life wasnt worth living anymore. Patient stated that his fiance is always blaming him for everything and making accusations against him that are not true. Patient stated he just wanted it to all end, and attempted to "end it all". Patient states he attempted to hang himself with a tshirt on a weight bench. Patient denies current mental health treatment or any history of mental illness or hospitalizations. Patient states he drinks occasionally with last drink yesterday (07/20/2024), patient states he drinks about twice per week "only about a glass of wine or one shot". Patient denies substance use. UDS+THC. Patient verbalizes feeling down and depressed, states he "hates that I can't do what I used too". Patient verbalizes recently losing his job and thinks his fiance is out to get him. Patient denies homicial ideations. Patient denies auditory or visual hallucinations. Patient denies delusions including paranoia, and no delusional statements noted on assessment. Patient appears well-groomed and appropriate for place in appearance. Patient is tearful, sad/depressed affect, and hopeless/helpless. Patient denies recent issues with appetite and denies difficulty maintaining hygiene. Patient verbalizes recently having poor sleep and sleeping 4-5 hours and difficulty staying asleep. Patient denies legal hx. " Upon today's assessment, patient was seen wandering the hallways agreeable to speak to telegraphic typewriter operator. He had a fairly constricted affect, had poor eye contact. He was fairly hesitant during conversation. Soft-spoken, spoke about having a "bad day". He claims that him and his fiance were fighting about multiple different things. States that his fiance recently got out of surgery about 2 weeks ago and has been doing more help more work around the house that she should not be, states that he was upset at her for doing that. He states that "she just would not stop arguing with me". Claims that he tried to get away and went for a walk however she followed him. He states that he attempted to hang himself afterwards. He was endorsing depression endorsing anxiety. States that his sleep has been poor, appetite has been fair.. Patient denies any suicidal or homicidal ideations intent or plan. At this time patient denies any auditory or visual hallucinations. Patient denies any flight of ideas racing thoughts and increased in goal directed behavior. Patient admits to using alcohol approximately 1 beverage per day, denies any history of severe withdrawals. Denies smoking cigarettes, states that he uses occasional marijuana. PAST PSYCHIATRIC HISTORY: Patient states that he has never been psychiatrically admitted and claims that he does not have a previous psychiatric diagnosis. Patient denies being on any psychiatric medications. Patient denies any previous psychiatric hospitalizations. Patient denies any psychiatric outpatient follow-up. Patient denies any history of suicide attempts in the past. PMH:As per ER note ALLERGIES: as per EMR CHEMICAL DEPENDENCY HISTORY: as per HPI FAMILY PSYCHIATRIC/SUBSTANCE USE HISTORY: Denies SOCIAL HISTORY: Patient was born and raised in [facility] and also in [facility]. States that he completed high school. 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 Claims that he went to [facility] twice in the past for a DUI in 2002 and also in 2009. He states he lives with his fiance in a house, he is unemployed, he has no kids. MENTAL STATUS EXAM: General Appearance: Patient appears to be thin, unshaven, wearing glasses, stated age is alert, hesitant, poor eye contact. Patient appears to have poor hygiene and grooming. Behavior: Patient is seated without any agitated behavior. Attempts to cooperate Speech: Patient's speech is fluent and nonpressured. Soft tone, concrete Mood/Affect: Patient reports their mood is depressed and anxious, affect is congruent and constricted. Suicidality/Homicidality: Patient denies having any homicidal ideation intent or plan. Denies any suicidal ideations intent or plan Perceptions: Patient denies any visual hallucinations and denies any auditory hallucinations Though content/process: There is no evidence of any delusional thought content and thought process is linear and goal-directed. [place], poverty of content Memory and concentration: AOX3, grossly intact for the purposes of this session. Can spell "WORLD" backwards Judgment and insight: Poor STRENGTHS/WEAKNESSES: strength is that patient is resilient. Weakness is that patient has poor judgment and is impulsive INTELLECT: Average IMPRESSIONS: Suicide attempt by hanging Major depressive disorder, without psychotic features Anxiety disorder unspecified Nicotine dependance Alcohol use disorder mild Cannabis use disorder, mild use PLAN: -Patient is admitted under voluntary status to [facility] for stabilization of psychiatric symptoms and safety. Patient has signed adult voluntary form and medication consent and is placed in patient's chart. -Medications : Will start patient on 25 mg of Zoloft today, increase to 50 mg starting tomorrow for mood/anxiety. Trazodone 50 mg nightly for insomnia/mood. -Ativan and Haldol PRN for agitation/aggression -CIWA protocol with Ativan PRN for ETOH withdrawal -Patient was counselled on substance abuse and desired to cut back on use -Patient was informed of the risks, benefits and side effects of the medication and patient verbally consented to taking the medications. -Internal Medicine consult to perform medical evaluation and physical. -NRT -not needed as patient does not smoke -SW on board for discharge planning. Encourage patient to participate in groups to work on coping skills. 07/22/24 13:47
[2024-07-22] MEDS: SERTRALINE 25 MG TAB PO STA (14:15)
[2024-07-22] MEDS: traZODone HCL 50 MG TAB PO SCH (20:45)
[2024-07-23] MEDS: SERTRALINE 50 MG TAB PO SCH ×2 (09:11→21:28)
[2024-07-23 10:05] LABS: ALT 36 U/L (4-49); AST 25 U/L (17-59); Albumin 4.4 g/dL (3.5-5.0); Alkaline Phosphatase 58 U/L (38-126); Bilirubin, Delta 0.1 mg/dL (0.0-0.2); Bilirubin,Unconjugated 0.8 mg/dL (0.0-1.1); Total Bilirubin 0.9 mg/dL (0.2-1.3); Total Protein 6.8 g/dL (6.3-8.2)
--- NOTE | 2024-07-23 11:44 | P.PN ---
Progress Note - Text Progress Note Date: 07/23/24 Interval History: Patient was seen [wandering the hallways] and was directable and agreeable to speak with curriculum writer in the office. He states that he is very tired today, although he slept all night. He claims his mood and anxiety are "ok". He states he has a good appetite. Vision Therapist spoke to patient about switching his medication, patient agreeable. Patient stated he spoke with his yesterday, and everything went well with that. Denies alcohol withdraw symptoms, will continue to monitor. Tori ent offers no other complaints. At this time patient denies any suicidal or homicidal ideations, intent or plan. Patient denies any auditory, visual hallucinations and denies any paranoia or delusions. Patient denies any side effects from the medications and has been compliant with meds. continues to mainly isolate in his room. MENTAL STATUS EXAM: General Appearance: Patient appears to be thin, unshaven, wearing glasses, stated age is alert, hesitant, poor eye contact. Patient appears to have poor hygiene and grooming. Behavior: Patient is seated without any agitated behavior. Attempts to c ooperate Speech: Patient's speech is fluent and nonpressured. Soft tone, concrete Mood/Affect: Patient reports their mood is ok, affect is congruent and constricted. Suicidality/Homicidality: Patient denies having any homicidal ideation intent or plan. Denies any suicidal ideations intent or plan Perceptions: Patient denies any visual hallucinations and denies any auditory hallucinations Though content/process: There is no evidence of any delusional thought content and thought process is linear and goal-directed. [place]. Memory and concentration: AOX3, grossly intact for the purposes of this session. Judgment and insight: Poor, improving midlly IMPRESSIONS: Suicide attempt by hanging Major depressive disorder, without psychotic features Anxiety disorder unspecified Nicotine dependance Alcohol use disorder mild Cannabis use disorder, mild use PLAN: -Patient is admitted under voluntary status to [facility] for stabilization of psychiatric symptoms and safety. Patient has signed adult voluntary form and medication consent and is placed in patient's chart. -Medications : change Zoloft 50 mg qhs for mood/anxiety. decrease Trazodone 25 mg nightly for insomnia/mood. add melatoniin 5mg qhs for sleep. -Ativan and Haldol PRN for agitation/aggression -CIWA protocol with Ativan PRN for ETOH withdrawal -NRT -not needed as patient does not smoke -SW on board for discharge planning. Encourage patient to participate in groups to work on coping skills.
[2024-07-23 16:33] LABS: Chol/HDL Ratio 4.94 Ratio; LDL Cholesterol,Calculated 166.4 mg/dL (0.0-131.0)
[2024-07-23] MEDS: MELATONIN 5 MG TABLET PO SCH (21:28)
[2024-07-23] MEDS: traZODone HCL 50 MG TAB PO SCH (21:29)
--- NOTE | 2024-07-24 10:27 | P.PN ---
Progress Note - Text Progress Note Date: 07/24/24 Interval History: Patient was seen [wandering the hallways] and was directable and agreeable to speak with financial writer in the office. He states that he is all right today, just tired. Automatic Buffing Wheel Former spoke with patient his medications, patient claims the zoloft is making him nauseous, financial writer will change medication to Lexapro. Patient agreeable. Patient appears visibly sad. Poor eye contact, poor posture. Withdrawn and minimizing symptoms. States he just wants to go home. Denies alcohol withdraw symptoms, will continue to monitor. Patient offers no other complaints. At this time patient denies any suicidal or homicidal ideations, intent or plan. Patient denies any auditory, visual hallucinations and denies any paranoia or delusions. Patient denies any side effects from the medications and has been compliant with meds. continues to mainly isolate in his room. MENTAL STATUS EXAM: General Appearance: Patient appears to be thin, unshaven, wearing glasses, stated age is alert, hesitant, poor eye contact. Patient appears to have poor hygiene and grooming. Behavior: Patient is seated without any agitated behavior. Attempts to cooperate, withdrawn. Poor eye contact. Speech: Patient's speech is fluent and nonpressured. Soft tone, concrete Mood/Affect: Patient reports their mood is all right, affect is congruent and constricted. Suicidality/Homicidality: Patient denies having any homicidal ideation intent or plan. Denies any suicidal ideations intent or plan Perceptions: Patient denies any visual hallucinations and denies any auditory hallucinations Though content/process: There is no evidence of any delusional thought content and thought process is linear and goal-directed. [place]. Minimizing Memory and concentration: AOX3, grossly intact for the purposes of this session. Judgment and insight: Poor, improving midlly IMPRESSIONS: Suicide attempt by hanging Major depressive disorder, without psychotic features Anxiety disorder unspecified Nicotine dependance Alcohol use disorder mild Cannabis use disorder, mild use PLAN: -Patient is admitted under voluntary status to [facility] for stabilization of psychiatric symptoms and safety. Patient has signed adult voluntary form and medication consent and is placed in patient's chart. -Medications : d/c Zoloft due to nausea and intolerance, add Lexapro 5mg qhs for mood/anxiety. d/c Trazodone, continue melatoniin 5mg qhs for sleep. -Ativan and Haldol PRN for agitation/aggression -CIWA protocol with Ativan PRN for ETOH withdrawal -NRT -not needed as patient does not smoke -SW on board for discharge planning. Encourage patient to participate in groups to work on coping skills.
[2024-07-24] MEDS: ESCITALOPRAM 5 MG TAB PO SCH (20:35)
[2024-07-25 07:00] VITALS: PULSE 80
--- NOTE | 2024-07-25 10:55 | P.PN ---
Progress Note - Text Progress Note Date: 07/25/24 Interval History: Patient was seen wandering the hallways and was directable and agreeable to ashly siddiqui with fiction and nonfiction writer prose in the office. He states that he is good today. He states he needed ativan after the visitation last night, because he was upset that he couldn't hug his . Patient does appear a little brighter today, with improved eye contact. Denies alcohol withdraw symptoms, will continue to monitor. Patient offers no other complaints. At this time patient denies any suicidal or homicidal ideations, intent or plan. Patient denies any auditory, visual hallucinations and denies any paranoia or delusions. Patient denies any side effects from the medications and has been compliant with meds. continues to mainly isolate in his room. MENTAL STATUS EXAM: General Appearance: Patient appears to be thin, unshaven, wearing glasses, stated age is alert. Patient appears to have mildly improving hygiene and grooming. Behavior: Patient is seated without any agitated behavior. Attempts to cooperate, improved eye contact Speech: Patient's speech is fluent and nonpressured. Soft tone, concrete, mildly improving Mood/Affect: Patient reports their mood is good, affect is congruent and constricted. Suicidality/Homicidality: Patient denies having any homicidal ideation intent or plan. Denies any suicidal ideations intent or plan Perceptions: Patient denies any visual hallucinations and denies any auditory hallucinations Though content/process: There is no evidence of any delusional thought content and thought process is linear and goal-directed. Memory and concentration: AOX3, grossly intact for the purposes of this session. Judgment and insight: Poor, improving midlly IMPRESSIONS: Suicide attempt by hanging Major depressive disorder, without psychotic features Anxiety disorder unspecified Nicotine dependance Alcohol use disorder mild Cannabis use disorder, mild use PLAN: -Patient is admitted under voluntary status to [facility] for stabilization of psychiatric symptoms and safety. Patient has signed adult voluntary form and medication consent and is placed in patient's chart. -Medications : Lexapro 5mg qhs for mood/anxiety. melatoniin 5mg qhs for sleep. -Ativan and Haldol PRN for agitation/aggression -NRT -not needed as patient does not smoke -SW on board for discharge planning. Encourage patient to participate in groups to work on coping skills. discharge Evan, depending on patient improvement and SW to call to see if the envt is safe and if any concern.
[2024-07-26 06:35] VITALS: BP 123/80; RESP 17; TEMP 97.1
--- NOTE | 2024-07-26 10:55 | P.DS ---
Providers Date of admission: 07/21/24 19:40 Expected date of discharge: 07/26/24 Attending physician: Sebastian Smith MD Consults: 07/21/24 20:01 Consult Physician Routine Consulting Provider: Joy Garcia Consult Reason/Comments: History and Physical, New Admission Do you want consulting provider notified?: Yes Primary care physician: Stated None - Discharge Diagnosis(es) (1) Suicide attempt by hanging Current Visit: Yes Status: Acute Priority: High (2) Major depressive disorder without psychotic features Current Visit: Yes Status: Acute Priority: High (3) Anxiety disorder, unspecified Current Visit: Yes Status: Acute Priority: Medium (4) Nicotine dependence Current Visit: Yes Status: Acute Priority: Low (5) Cannabis use disorder, mild, abuse Current Visit: Yes Status: Acute Priority: Medium Hospital Course: Admission HPI: Admission note was completed by creative services writer "Patient presented to the hospital on 07/21. As per EPS note, "Patient presented to ED by EMS for attempted hanging. Patient assess from [id number]. Patient states that he was feeling overwhelmed and life wasnt worth living anymore. Patient stated that his fiance is always blaming him for everything and making accusations against him that are not true. Patient stated he just wanted it to all end, and attempted to "end it all". Patient states he attempted to hang himself with a tshirt on a weight bench. Patient denies current mental health treatment or any history of mental illness or hospitalizations. Patient states he drinks occasionally with last drink yesterday (07/20/2024), patient states he drinks about twice per week "only about a glass of wine or one shot". Patient denies substance use. UDS+THC. Patient verbalizes feeling down and depressed, states he "hates that I can't do what I used too". Patient verbalizes recently losing his job and thinks his fiance is out to get him. Patient denies homicial ideations. Patient denies auditory or visual hallucinations. Patient denies delusions including paranoia, and no delusional statements noted on assessment. Patient appears well-groomed and appropriate for place in appearance. Patient is tearful, sad/depressed affect, and hopeless/helpless. Patient denies recent issues with appetite and denies difficulty maintaining hygiene. Patient verbalizes recently having poor sleep and sleeping 4-5 hours and difficulty staying asleep. Patient denies legal hx. " Upon today's assessment, patient was seen wandering the hallways agreeable to speak to creative services writer. He had a fairly constricted affect, had poor eye contact. He was fairly hesitant during conversation. Soft-spoken, spoke about having a "bad day". He claims that him and his fiance were fighting about multiple different things. States that his fiance recently got out of surgery about 2 weeks ago and has been doing more help more work around the house that she should not be, states that he was upset at her for doing that. He states that "she just would not stop arguing with me". Claims that he tried to get away and went for a walk however she followed him. He states that he attempted to hang himself afterwards. He was endorsing depression endorsing anxiety. States that his sleep has been poor, appetite has been fair.. Patient denies any suicidal or homicidal ideations intent or plan. At this time patient denies any auditory or visual hallucinations. Patient denies any flight of ideas racing thoughts and increased in goal directed behavior. Patient admits to using alcohol approximately 1 beverage per day, denies any history of severe withdrawals. Denies smoking cigarettes, states that he uses occasional marijuana." Hospital course: Upon admission to the unit patient was directable and agreeable to commence treatment and signed adult voluntary form. Patient was initially guarded, isolative however with time and treatment he eventually got along well with other patients on the unit and followed unit protocol. Patient was compliant with the medications and denied any side effects throughout hospital course. Patient was started on Lexapro 5 mg nightly for mood/anxiety, melatonin 5 mg nightly for sleep. Patient spoke of his stressors and engaged in therapy both group and individual. Patient was also seen by medical team for history and physical exam. Throughout the course of the hospitalization patient gradually improved with regards to mood, anxiety, suicidal thoughts, sleep and became more future oriented with improved insight and judgment. On the day of discharge patient denied any suicidal or homicidal ideations intent or plan denied any auditory or visual hallucinations. Patient endorsed wanting to live for his health and family. The patient denied any access to guns or weapons. Patient denied any paranoia and did not endorse any delusions. Patient does have a significant history of substance abuse and was counseled on abstaining from all substances including alcohol and marijuana. Patient elected to do outpatient substance use treatment program through [facility]. Patient was also counseled on the medications and need for regular compliance and was encouraged to follow-up with their outpatient appointment for mental health and also for primary care. Prior to discharge a family meeting will be arranged by social work associate to answer any questions and ensure safety upon discharge. Mental status exam: General Appearance: Patient appears to be thin, wearing glasses, unshaven, stated age is alert, pleasant, and cooperative. Patient is in no acute distress and has improved hygiene and grooming Behavior: Patient is calmly seated without any agitated behavior. Speech: Patient's speech is fluent and nonpressured. Mood/Affect: Patient reports their mood is "better", affect is congruent and euthymic. Suicidality/Homicidality: Patient denies having any suicidal or homicidal ideation intent or plan. Perceptions: Patient denies any auditory or visual hallucinations. Though content/process: There is no evidence of any delusional thought content and thought process is linear and goal-directed. More future oriented Memory and concentration: AOX3, grossly intact for the purposes of this session. Can spell "WORLD" backwards correctly. Judgment and insight: improved with guarded prognosis Impression: Suicide attempt by hanging Major depressive disorder, without psychotic features Anxiety disorder unspecified Nicotine dependance Alcohol use disorder mild Cannabis use disorder, mild use Plan: -Continue with discharge today as patient has improved and stabilized psychiatrically and is not currently an imminent threat to himself and/or others. Patient will remain at chronically elevated risk for harm to self and/or others due to his impulsivity. -Continue medications: Lexapro 5 mg nightly for mood/anxiety, melatonin 5 mg nightly for sleep -Patient was counseled on the need for medication compliance and appropriate follow-up at mental health and also primary care for medical issues. Patient verbalized understanding and agreed. -Social work to arrange for and conduct family meeting to ensure safety upon discharge and answer any questions/concerns. Social work also to arrange for patients follow up appointments with [facility] for psychiatric care along with follow up with primary care provider. -Patient counseled on abstaining from recreational drugs and marijuana and alcohol. Was informed/educated on the adverse effects on their physical and mental health. Patient verbally agreed and understood. -Patient was instructed to return to the hospital or seek immediate medical care if their psychiatric or medical symptoms do worsen or reoccur. Allergies Allergy/AdvReac Type Severity Reaction Status Date / Time shellfish derived shrimp Allergy Itching Verified 07/21/24 14:36 tongue Laboratory Results WBC 8.2 k/uL (3.8-10.6) 07/21/24 09:49 RBC 5.29 m/uL (4.30-5.90) 07/21/24 09:49 Hgb 16.0 gm/dL (13.0-17.5) 07/21/24 09:49 Hct 47.3 % (39.0-53.0) 07/21/24 09:49 MCV 89.4 fL (80.0-100.0) 07/21/24 09:49 MCH 30.3 pg (25.0-35.0) 07/21/24 09:49 MCHC 33.9 g/dL (31.0-37.0) 07/21/24 09:49 RDW 13.4 % (11.5-15.5) 07/21/24 09:49 Plt Count 256 k/uL (150-450) 07/21/24 09:49 MPV 8.3 07/21/24 09:49 Neutrophils % 68 % 07/21/24 09:49 Lymphocytes % 25 % 07/21/24 09:49 Monocytes % 4 % 07/21/24 09:49 Eosinophils % 2 % 07/21/24 09:49 Basophils % 0 % 07/21/24 09:49 Neutrophils # 5.6 k/uL (1.3-7.7) 07/21/24 09:49 Lymphocytes # 2.0 k/uL (1.0-4.8) 07/21/24 09:49 Monocytes # 0.3 k/uL (0-1.0) 07/21/24 09:49 Eosinophils # 0.2 k/uL (0-0.7) 07/21/24 09:49 Basophils # 0.0 k/uL (0-0.2) 07/21/24 09:49 PT 10.7 sec (10.0-12.5) 07/21/24 09:49 INR 1.0 (<1.2) 07/21/24 09:49 APTT 21.6 sec (22.0-30.0) L 07/21/24 09:49 Sodium 137 mmol/L (137-145) 07/21/24 10:48 Potassium 4.1 mmol/L (3.5-5.1) 07/21/24 10:48 Chloride 107 mmol/L (98-107) 07/21/24 10:48 Carbon Dioxide 21 mmol/L (22-30) L 07/21/24 10:48 Anion Gap 9 mmol/L 07/21/24 10:48 BUN 16 mg/dL (9-20) 07/21/24 10:48 Creatinine 0.75 mg/dL (0.66-1.25) 07/21/24 10:48 Est GFR (CKD-EPI)AfAm >90 (>60 ml/min/1.73 sqM) 07/21/24 10:48 Est GFR (CKD-EPI)NonAf >90 (>60 ml/min/1.73 sqM) 07/21/24 10:48 Glucose 109 mg/dL (74-99) H 07/21/24 10:[address] Glu mg/dL 114 mg/dL 07/22/24 10:10 Hemoglobin A1c 5.6 % (<=6.0) 07/22/24 10:10 Calcium 9.3 mg/dL (8.4-10.2) 07/21/24 10:48 Total Bilirubin 0.9 mg/dL (0.2-1.3) 07/23/24 09:19 Conjugated Bilirubin 0.0 mg/dL (0.0-0.3) 07/23/24 09:19 Unconjugated Bilirubin 0.8 mg/dL (0.0-1.1) 07/23/24 09:19 Delta Bilirubin 0.1 mg/dL (0.0-0.2) 07/23/24 09:19 AST 25 U/L (17-59) 07/23/24 09:19 ALT 36 U/L (4-49) 07/23/24 09:19 Alkaline Phosphatase 58 U/L (38-126) 07/23/24 09:19 Total Protein 6.8 g/dL (6.3-8.2) 07/23/24 09:19 Albumin 4.4 g/dL (3.5-5.0) 07/23/24 09:19 Triglycerides 117.00 mg/dL (0.00-149.00) 07/23/24 09:19 Cholesterol 238.00 mg/dL (0.00-200.00) H 07/23/24 09:19 LDL Cholesterol, Calc 166.4 mg/dL (0.0-131.0) H 07/23/24 09:19 VLDL Cholesterol, Calc 23.40 mg/dL (5.00-40.00) 07/23/24 09:19 HDL Cholesterol 48.20 mg/dL (40.00-60.00) 07/23/24 09:19 Cholesterol/HDL Ratio 4.94 Ratio 07/23/24 09:19 TSH 3.370 mIU/L (0.465-4.680) 07/23/24 09:19 Urine Color Yellow 07/22/24 10:40 Urine Appearance Clear (Clear) 07/22/24 10:40 Urine pH 6.0 (5.0-8.0) 07/22/24 10:40 Ur Specific [place] 1.023 (1.001-1.035) 07/22/24 10:40 Urine Protein Trace (Negative) H 07/22/24 10:40 Urine Glucose (UA) Negative (Negative) 07/22/24 10:40 Urine Ketones Negative (Negative) 07/22/24 10:40 Urine Blood Small (Negative) H 07/22/24 10:40 Urine Nitrite Negative (Negative) 07/22/24 10:40 Urine Bilirubin Negative (Negative) 07/22/24 10:40 Urine Urobilinogen <2.0 mg/dL (<2.0) 07/22/24 10:40 Ur Leukocyte Esterase Negative (Negative) 07/22/24 10:40 Urine RBC 5 /hpf (0-5) 07/22/24 10:40 Urine WBC 2 /hpf (0-5) 07/22/24 10:40 Ur Squamous Epith Cells <1 /hpf (0-4) 07/22/24 10:40 Calcium Oxalate Crystal Occasional /hpf (None) H 07/22/24 10:40 Urine Mucus Many /hpf (None) H 07/22/24 10:40 Urine Opiates Screen Not Detected (NotDetected) 07/21/24 11:30 Ur Oxycodone Screen Not Detected (NotDetected) 07/21/24 11:30 Urine Methadone Screen Not Detected (NotDetected) 07/21/24 11:30 Ur Barbiturates Screen Not Detected (NotDetected) 07/21/24 11:30 U Tricyclic Antidepress Not Detected (NotDetected) 07/21/24 11:30 Ur Phencyclidine Scrn Not Detected (NotDetected) 07/21/24 11:30 Ur Amphetamines Screen Not Detected (NotDetected) 07/21/24 11:30 U Methamphetamines Scrn Not Detected (NotDetected) 07/21/24 11:30 U Benzodiazepines Scrn Not Detected (NotDetected) 07/21/24 11:30 Urine Cocaine Screen Not Detected (NotDetected) 07/21/24 11:30 U Marijuana (THC) Screen Detected (NotDetected) H 07/21/24 11:30 Serum Alcohol <10 mg/dL 07/21/24 10:48 SARS-CoV-2 (PCR) Not Detected (Not Detectd) 07/21/24 12:00 Blood Type A Positive 07/21/24 10:48 Blood Type Recheck A Pos 07/21/24 10:48 Bld Type Recheck Status No 07/21/24 10:48 Antibody Screen NEGATIVE 07/21/24 10:48 Spec Expiration Date 07/24/2024234707/21/24 10:48 Vital Signs Temp 97.1 F L 07/26/24 06:00 Pulse 80 07/26/24 06:00 Resp 17 07/26/24 06:00 BP 123/80 07/26/24 06:00 Pulse Ox 95 07/26/24 06:00 FiO2 Patient Condition at Discharge: Stable Plan - Discharge Summary Discharge Rx Participant: No New Discharge Prescriptions: New Escitalopram [Lexapro] 5 mg PO HS 30 Days #30 tab Melatonin 5 mg PO HS 30 Days #30 tab Continue Multivit-Min/FA/Lycopen/Lutein [Centrum Silver Tablet] 2 tab PO DAILY Discontinued Ibuprofen [Motrin Ib] 200 - 800 mg PO Q6H PRN PRN Reason: Migraine Headache/Back Pain [id number] [phone] [Excedrin] 1 - 2 tab PO Q4HR PRN PRN Reason: Migraine Headache Discharge Medication List Multivit-Min/FA/Lycopen/Lutein [Centrum Silver Tablet] 2 tab PO DAILY 07/21/24 [History] Escitalopram [Lexapro] 5 mg PO HS 30 Days #30 tab 07/26/24 [Rx] Melatonin 5 mg PO HS 30 Days #30 tab 07/26/24 [Rx] Follow up Appointment(s)/Referral(s): [facility] [Outside] - 07/29/24 9:30 am (07/29@ 9:30am with intake) [facility] [NON-STAFF] - 1 Week Patient Instructions/Handouts: How to Stop Smoking (DC), Depression (DC), Anxiety (ED) Activity/Diet/Wound Care/Special Instructions: [facility] Discharge Info Avoid the use of street drugs and alcohol. Take all medications as prescribed. When you are in need of refills on your medications, please contact your outpatient medical provider and/or outpatient psychiatrist. Please go to your scheduled outpatient appointments for aftercare treatment. If symptoms return or become worse, call the crisis line at or and/or visit the nearest emergency room for assistance. National Suicide and Crisis Lifeline - call or text 727. Discharge Disposition: HOME SELF-CARE
== END 2024-07-26 13:15 | disposition home or self-care (01) | DRG 754 ==
LOC: EC 09:26 → 3MHU 19:40
PROVIDERS: ADMIT Psychiatry & Neurology Psychiatry; ATTEND Psychiatry & Neurology Psychiatry
DX: F32.9 Major depressive disorder, single episode, unspecified (principal); F41.9 Anxiety disorder, unspecified; I10 Essential (primary) hypertension; F17.200 Nicotine dependence, unspecified, uncomplicated; F12.10 Cannabis abuse, uncomplicated; F10.10 Alcohol abuse, uncomplicated; T71.162A Asphyxiation due to hanging, intentional self-harm, initial encounter; Z71.41 Alcohol abuse counseling and surveillance of alcoholic; M19.90 Unspecified osteoarthritis, unspecified site; G47.8 Other sleep disorders; Z71.51 Drug abuse counseling and surveillance of drug abuser; Z56.0 Unemployment, unspecified; Z79.01 Long term (current) use of anticoagulants; Z79.82 Long term (current) use of aspirin; Z79.899 Other long term (current) drug therapy; Z86.718 Personal history of other venous thrombosis and embolism; Z87.442 Personal history of urinary calculi; Z96.643 Presence of artificial hip joint, bilateral; Z11.52 Encounter for screening for COVID-19; Z79.1 Long term (current) use of non-steroidal anti-inflammatories (NSAID)
CPT/HCPCS: 36415; 70450; 70498; 71045; 72125; 72170; 80053; 80061; 80076; 80306; 80320; 81001; 82075; 83036; 84443; 85025; 85610; 85730; 86850; 86900; 86901; 87635; 93005; 99285